=== PATIENT | female | born 1960 | race Caucasian/White ===

== ENCOUNTER → 2016-05-30 | Outpatient (CLI) | payer OTHER ==
[~2016-05-30] MED LIST: ALTOPREV40 MG PO; APAP325 M1 PO; APIDRA SOL100 UNIT/1 SUBQ; ASPIRIN EC81 M1 PO; ASPIRIN81 M1 PO; BUDEPRION XL300 MG PO; BUPROPION XL300 MG PO; CARVEDILOL12.5 MG PO; CARVEDILOL25 MG PO; CIPRO PO; CLARITIN10 M2 PO; COREG3.125 MG PO; CRESTOR10 MG PO; DESYREL50 MG PO; FISH OIL 1,0001 EAC1 PO; GABAPENTIN400 M2 PO; GLUCOPHAGE850 MG PO; GLUCOTROL PO; HUMALOG100 U/M2 SUBQ; HUMALOG100 U/ML; HUMALOG100 U/ML SUBQ; HYDROCODON-ACE1 EAC9 PO; HYDROCODONE-APA1 T55 PO; IBUPROFEN800 MG PO; IMDUR-ER60 M1 PO; INVOKANA100 MG PO; JANUVIA PO; KEFLEX PO; LANTUS SOL100 UNIT/1 SUBQ; LANTUS SOLOSTAR3 ML SUBQ; LANTUS100 U/ML SUBQ; LANTUS100 UNITS/ SUBQ; LATANOPROST2.5 ML OU; LIPITOR20 MG PO; LIPITOR40 MG PO; LISINOPRIL5 MG PO; LOPID600 MG PO; LORTAB 5-325 M1 EACH PO; LORTAB 7.5-3251 EACH PO; LOVASTATIN20 M1 PO; METFORMIN HCL850 MG PO; METFORMIN PO; MILK OF MAGNESIA PO; MOBIC PO; NEURONTIN300 MG PO; NITROGLYCERIN0.4 MG SL; NITROSTAT0.4 MG SL; NORCO 5/325 TAB1 TAB PO; PANTOPRAZOLE SO40 MG PO; PHENERGAN25 M1 DOB; PHENERGAN25 MG PO; PLAVIX PO; PROTONIX PO; ROBAXIN 750750 MG PO; TOPAMAX50 MG PO; TRAZODONE PO; ZESTORETIC 20/11 TAB PO; ZOCOR80 MG PO; ZOLOFT100 MG PO
[2016-05-30 13:24] LABS: HEMATOCRIT 43.7 % (35.0-45.0); HEMOGLOBIN 14.7 gm/dL (12.0-16.0); MEAN CELL VOLUME 87.7 FL (83-96); MEAN CORPUSCULAR HEMOGLOBIN 29.6 PG (28-34); MEAN CORPUSCULAR HGB CONC 33.7 g/dL (30-36); MEAN PLATELET VOLUME 7.5 FL (6.5-11.5); RED BLOOD COUNT 4.98 X10e (3.90-5.30); RED CELL DISTRIBUTION WIDTH 13.7 % (11.0-15.5); WHITE BLOOD COUNT 7.6 X10e3 (4.0-10.5)
[2016-05-30 14:24] LABS: BLOOD UREA NITROGEN 19 mg/dL (9-23); CALCIUM SERUM 9.5 mg/dL (8.4-10.2); CARBON DIOXIDE 30 mmol/L (22-31); CHLORIDE 100 mmol/L (100-111); CREATININE SERUM 0.5 mg/dL (0.6-1.4); GLOM FILT RATE Estimated ABOVE60 mL/min (>60); GLUCOSE FASTING 299 mg/dL (70-110); POTASSIUM 4.3 mmol/L (3.5-5.1); SODIUM 134 mmol/L (135-145)
== END | disposition home or self-care (01) ==
LOC: CAMB 11:55
PROVIDERS: Surgery
DX: Z01.812 Encounter for preprocedural laboratory examination (principal)
CPT/HCPCS: 36415; 80048; 85027

== ENCOUNTER 2016-06-08 06:48 | Inpatient (IN) | payer OTHER ==
--- NOTE | ~2016-06-08 | OR ---
Unit #: [id number] #: [id number] Patient: LILIANA KIRK [id number] [address] [place], [place] [address] [id number] I MR#: [id number] NAME: LILIANA KIRK ROOM: [facility] Date of Procedure: 06/08/2016 Admission Date: 06/08/2016 Surgeon: Igor Hernandez Jr., M.D. : 1960 Attending Physician: Igor Hernandez Jr., M.D. Primary Care Physician: Silvia Phillip M.D. OPERATIVE REPORT JOB NOTE: CC: DR. PHILLIP. INDICATION FOR PROCEDURE The patient is a 56-year-old white female, recently underwent a percutaneous needle biopsy which was suspicious for cancer. She was brought in, lumpectomy performed, and this revealed a small cancer of the breast. She has been seen in consultation by Oncology namely Dr. Chao and was felt she would best be served at her age by mastectomy with sentinel node biopsy. She is brought in this time at her request for this procedure. She understands the procedure including risks, including that of nerve injury, chronic pain, lymphocele formation, hematoma formation, and recurrence of her cancer and consents. PREOPERATIVE DIAGNOSIS Recently diagnosed adenocarcinoma of the left breast. POSTOPERATIVE DIAGNOSIS Recently diagnosed adenocarcinoma of the left breast noting the cavity from her previous biopsy against the chest wall. There was no gross recurrent disease. The sentinel lymph node was negative on frozen section. ANESTHESIA General with endotracheal intubation. TIRE GROOVER Kandice Rodas. PROCEDURE PERFORMED Left mastectomy with sentinel node biopsy. DESCRIPTION OF PROCEDURE The patient was positioned in supine position. After being anesthetized and intubated, she was prepped and draped in routine fashion for left mastectomy with sentinel node biopsy. An elliptical incision was made around the left breast with superior and inferior flaps being developed. An incision was carried around to the axilla and dissection was carried down the axilla and using the Neoprobe a single lymph node was found to represent the sentinel node. This had significant signal radiation from it. The node was removed with several vessels being clamped and divided with either hemoclips or with free-hand tie. After it was removed, it was sent to pathology. Frozen section revealed no obvious cancer. There was only a single node. At this point, the breast was taken off the chest Unit #: [id number] #: [id number] Patient: REAGAN,LILIAAN wall and completely removed and sent to pathology. Hemostasis was achieved with both Bovie cautery as well as hemoclips and were appropriate, 2-0 silk stick ties. The wound was irrigated and there was no evidence of any obvious cancer on the chest wall. The cavity from her biopsy site was removed along with the edge of the pectoralis major muscle along with the breast itself. After hemostasis was noted, two 10 mm Caleb-Martell drains were placed, one in the axillary area, the other under the flaps and sutured to the skin with 2-0 silk sutures. The wound was closed with interrupted 3-0 Vicryl sutures on the subcu and stainless steel skin clips and skin stapling device on the skin. Sterile compressive dressing was applied externally. Estimated blood loss less than 300 mL. The patient received less than 3000 mL crystalloid solution during the procedure. Sponges and instruments counts were correct x3. Two Caleb-Martell drains were used as noted above and no complications. The patient was taken to the recovery room with stable vital signs in satisfactory condition. Dictated by... Igor Hernandez Jr., M.D. JMB/albina TD: 06/09/2016 03:09 JOB #: [id number] CC: Monico Chao M.D. OPERATIVE REPORT X Igor Hernandez MD X PROCEDURE OPERATIVE NOTE
--- NOTE | ~2016-06-08 | NM79 ---
[facility] A Service of [facility] & [facility] RADIOLOGY TEXT RESULTS PATIENT: LILIANA KIRK [facility] 463-01 : [birth year] UNIT #: [id number] AGE: [address]: Igor Hernandez MD SEX: F ORDER DR: [id number] [facility] [address] [facility]. [place], [place] [address] [id number] MR#: [id number] Acc #: [id number] NAME: LILIANA KIRK : 1960 SEX: F STUDY DATE/TIME: 06/08/2016 8:00 UNIT: CS ROOM: STUDY DESCRIPTION: NM [place] Node Inj Attending Physician: Igor Hernandez Jr., M.D. Ordering Physician: Igor Hernandez Jr., M.D. Primary Care Physician: Silvia Green M.D. MEDICAL IMAGING REPORT This report is preliminary unless electronic signature is present EXAM Nuclear medicine sentinel node injection without imaging. COMPARISON Screening mammogram dated December 20, 2015 as well as left diagnostic mammogram dated January 06, 2016 and left breast ultrasound on January 06, 2016, ultrasound guided biopsy January 11, 2016 and postbiopsy left diagnostic mammogram dated January 11, 2016. Ultrasound-guided needle wire localization of left breast dated March 21, 2016 and post localization left diagnostic mammogram and surgical specimen on March 21, 2016. INDICATIONS 56-year-old female with diagnosis of left breast cancer by surgical excisional biopsy on March 21, 2016. Nuclear medicine sentinel node injection was requested prior to left mastectomy and sentinel lymph node biopsy today. FINDINGS After explaining the procedure the patient gave consent to proceed. The periareolar skin of the left breast was cleansed with alcohol pads. A time-out was performed confirming correct patient, date of and procedure and procedure site. 4 equal aliquots of technetium 99m labeled filtered sulfur colloid were injected into the periareolar dermis at the 12 o'clock, 3 o'clock, 6 o'clock and 9 o'clock positions. Total of 600 microcuries of technetium 99m labeled filtered sulfur colloid were injected. The patient tolerated procedure without complication. The injection sites were dabbed with gauze which were then given to the automation technologist for appropriate radioactive waste disposal. Patient tolerated the procedure without complication. IMPRESSION Successful nuclear medicine sentinel node injection of the left breast STS. [facility] A Service of [facility] & [facility] RADIOLOGY TEXT RESULTS PATIENT: LILIANA KIRK LOCATION: [place] [address] : [birth year] UNIT #: [id number] AGE: [address]: Igor Hernandez MD SEX: F ORDER DR: performed at approximately 08:00 a.m. on June 08, 2016. Please see separate pathology report for lymph node biopsy results. Dictated by... Axel Hewitt M.D. THIS IS AN ELECTRONICALLY VERIFIED REPORT Axel Hewitt M.D. at 06/11/2016 6:28 PM CHRISTOPH/vince TD: 06/08/2016 10:42 JOB #: [id number] MEDICAL IMAGING REPORT COPY
--- NOTE | ~2016-06-08 | DS ---
Unit #: [id number] #: [id number] Patient: LILIANA KIRK [id number] [address] [place], [place] [address] [id number] I MR#: [id number] NAME: LILIANA KIRK ROOM: 463 Age: 56 Sex: F Admission Date: 06/08/2016 : 1960 Discharge Date: 06/10/2016 Attending Physician: Igor Hernandez Jr., M.D. Primary Care Physician: Silvia Green M.D. DISCHARGE SUMMARY HISTORY AND EXAM Ms. Kirk is a 56-year-old female who was diagnosed as an outpatient with adenocarcinoma of the left breast. She was brought in the morning of surgery where Dr. Hernandez performed a left mastectomy with sentinel node biopsy. She was admitted to the hospital postoperatively and, on the first postoperative day, she had some low-grade fever and significant Caleb-Martell drainage. She was kept on observation and, by the following day, she was afebrile. Her vital signs were stable and her Caleb-Martell drainage was decreasing. On examination of her chest, her flaps were viable and there was no hematoma, seroma noted. Her pathology is still pending. She has been taught how to use her Caleb-Martell drains and a fresh dressing has been ordered. She will be discharged home in stable condition with instructions to ambulate ad mauro and undergo diet as tolerated. She is not to shower until she sees Dr. Hernandez and she is to call the office and make a followup appointment for one week. Medication reconciliation sheet was completed and a prescription for hydrocodone was left for pain control. The patient understood these instructions and will be discharged home in stable condition. Dictated by... David Friend/gerardo TD: 06/12/2016 07:11 JOB #: [id number] DISCHARGE SUMMARY X Chino Peralta MD X DISCHARGE SUMMARY
[~2016-06-08 06:48] MED LIST changes: -APAP325 M1 PO; -CARVEDILOL25 MG PO; -CRESTOR10 MG PO; -HUMALOG100 U/ML; +HUMALOG100 UNIT/2 SUBQ; -HYDROCODONE-APA1 T55 PO; -IMDUR-ER60 M1 PO; -KEFLEX PO; -LORTAB 7.5-3251 EACH PO; -MILK OF MAGNESIA PO; -NITROSTAT0.4 MG SL
[2016-06-08] MEDS ORDERED: CARVEDILOL25 MG PO (10:16)
[2016-06-08] MEDS ORDERED: CRESTOR10 MG PO (10:16)
[2016-06-08] MEDS ORDERED: LOPID600 MG PO (10:17)
[2016-06-08] MEDS ORDERED: IMDUR-ER60 M1 PO (10:17)
[2016-06-08] MEDS ORDERED: ZOLOFT100 MG PO (10:18)
[2016-06-08] MEDS ORDERED: METFORMIN PO (10:18)
[2016-06-08] MEDS ORDERED: NITROSTAT0.4 MG SL (10:18)
[2016-06-08 16:56] LABS: BASOPHIL% 0.2 % (0-2.5); EOSINOPHIL% 0.1 % (0.0-7.0); HEMATOCRIT 33.6 % (35.0-45.0); HEMOGLOBIN 11.2 gm/dL (12.0-16.0); LYMPHOCYTE# 1.1 X10e3 (1.0-3.5); MEAN CORPUSCULAR HEMOGLOBIN 29.7 PG (28-34); MEAN CORPUSCULAR HGB CONC 33.3 g/dL (30-36); MEAN PLATELET VOLUME 7.7 FL (6.5-11.5); MONOCYTE# 0.9 X10e3 (0-1.0); MONOCYTE% 5.9 % (3.0-12.0); NEUTROPHIL# 13.8 X10e3 (1.5-7.1); NEUTROPHIL% 86.8 % (40-75); PLATELET COUNT 232 X10e3 (140-420); RED BLOOD COUNT 3.77 X10e (3.90-5.30); RED CELL DISTRIBUTION WIDTH 12.9 % (11.0-15.5); WHITE BLOOD COUNT 15.8 X10e3 (4.0-10.5)
[2016-06-08 16:57] LABS: DIFF IND YES
[2016-06-08 17:20] LABS: PLATELET ESTIMATE NORMAL (NORMAL); RBC NORMAL YES
[2016-06-08] MEDS ORDERED: JANUVIA PO (18:53)
[2016-06-09 08:17] LABS: BASOPHIL# 0.1 X10e3 (0-0.3); BASOPHIL% 0.6 % (0-2.5); EOSINOPHIL# 0.2 X10e3 (0-0.7); EOSINOPHIL% 2.4 % (0.0-7.0); HEMOGLOBIN 9.9 gm/dL (12.0-16.0); LYMPHOCYTE# 2.9 X10e3 (1.0-3.5); LYMPHOCYTE% 30.2 % (17.0-45.0); MEAN CELL VOLUME 87.5 FL (83-96); MEAN CORPUSCULAR HEMOGLOBIN 29.8 PG (28-34); MEAN CORPUSCULAR HGB CONC 34.1 g/dL (30-36); MEAN PLATELET VOLUME 7.8 FL (6.5-11.5); MONOCYTE% 9.9 % (3.0-12.0); NEUTROPHIL# 5.6 X10e3 (1.5-7.1); NEUTROPHIL% 56.9 % (40-75); PLATELET COUNT 223 X10e3 (140-420); RED BLOOD COUNT 3.31 X10e (3.90-5.30); RED CELL DISTRIBUTION WIDTH 13.3 % (11.0-15.5); WHITE BLOOD COUNT 9.7 X10e3 (4.0-10.5)
[2016-06-09 08:22] LABS: DIFF IND NO
[2016-06-10] MEDS ORDERED: APAP325 M1 PO ×2 (09:04→09:06)
[2016-06-10] MEDS ORDERED: HYDROCODONE-APA1 T55 PO (09:13)
[2016-10-10] MEDS ORDERED: LORTAB 7.5-3251 EACH PO (08:22)
[2016-12-26] MEDS ORDERED: PANTOPRAZOLE SO40 MG PO (11:39)
[2016-12-26] MEDS ORDERED: LIPITOR40 MG PO (11:39)
[2016-12-26] MEDS ORDERED: INVOKANA300 MG PO (11:39)
[2016-12-26] MEDS ORDERED: TAMOXIFEN CITRA20 MG PO (11:39)
== END 2016-06-10 11:19 | disposition home or self-care (01) | DRG 581 ==
LOC: CSUR 06:48 → CPACUOF 08:50 → C4B 14:36 → C4C 06-09 17:53
PROVIDERS: Surgery
PROC: 0HTU0ZZ Resection of Left Breast, Open Approach (ICD-10-PCS; principal; 2016-06-08 11:00)
PROC: 07B60ZX Excision of Left Axillary Lymphatic, Open Approach, Diagnostic (ICD-10-PCS; 2016-06-08 11:00)
DX: C50.912 Malignant neoplasm of unspecified site of left female breast (principal); E11.9 Type 2 diabetes mellitus without complications; G89.18 Other acute postprocedural pain; K21.9 Gastro-esophageal reflux disease without esophagitis; Z79.84 Long term (current) use of oral hypoglycemic drugs; Z87.442 Personal history of urinary calculi; M19.90 Unspecified osteoarthritis, unspecified site
CPT/HCPCS: 82947; 85025; 88307; 88309; 88331; A9541; J0131; J1650; J1815; J1885; J2250; J2270; J2370; J2405; J2550; J3010

== ENCOUNTER 2016-06-20 15:40 | Inpatient (IN) | payer OTHER ==
--- NOTE | ~2016-06-20 | OR ---
Unit #: [id number] #: [id number] Patient: LILIANA KIRK [id number] [address] [place], [place] [address] [id number] I MR#: [id number] NAME: LILIANA KIRK ROOM: 461 Date of Procedure: 06/27/2016 Admission Date: 06/20/2016 Surgeon: Igor Hernandez Jr., M.D. : 1960 Attending Physician: Durga Jordan M.D. Primary Care Physician: Silvia Green M.D. OPERATIVE REPORT INDICATIONS FOR PROCEDURE The patient is a 56-year-old white female, who recently underwent mastectomy after being diagnosed with breast cancer and this was on the left. She developed a slight area of necrosis of the skin and subsequently developed a large lymphocele after drains were removed in the office. Since then, the lymphocele has become infected and she has had a drain placed by Interventional Radiology, but continues to have a large amount of fluid under the flaps with evidence of an ongoing abscess. She was brought to the operating room at this time for incision, drainage, and sharp excisional debridement using a #10 blade scalpel. She understands the procedure including the risk and consents. PREOPERATIVE DIAGNOSIS Infected wound left chest wall with abscess formation. POSTOPERATIVE DIAGNOSIS Infected wound left chest wall with abscess formation, noting minimal amount of necrosis of the edge of the skin flaps especially the lower skin flap medial. ANESTHESIA General with LMA. PROCEDURE PERFORMED Incision, drainage, and sharp excisional debridement using #10 blade scalpel of the wound in the left chest wall. DESCRIPTION OF PROCEDURE The patient was positioned in the supine position. After being anesthetized, was prepped and draped in routine fashion for incision and drainage of her fluid collection of left chest wall. Colstrip were removed from her recent surgery and sutures holding the subcutaneous tissue together were then lysed with scissors. After the wound was opened, there was a large amount of murky yellowish appearing fluid. Cultures for aerobic and anaerobic organisms were sent. The fluid was all evacuated and the wound was copiously irrigated with saline solution. There was no evidence of any significant bleeding. The small edges on the wound that were ischemic and necrotic were excised with a #10 blade scalpel. After cleaning the wound and ensuring hemostasis, the wound was packed open with saline moist dry dressings. Sterile compression dressing was applied externally. Estimated blood loss was less than 50 mL. The patient received less than 1000 mL of crystalloid solution during the procedure. Unit #: [id number] #: [id number] Patient: BURKHEAD,LILIANA Sponges and instrument counts were correct x3. No drains used. No complications. The patient was taken to the recovery room with stable vital signs in satisfactory condition. Dictated by... Igor Hernandez Jr., M.D. JMB/albina TD: 06/28/2016 05:39 JOB #: [id number] OPERATIVE REPORT Page 1 of 1 X Igor Hernandez MD X PROCEDURE OPERATIVE NOTE
--- NOTE | ~2016-06-20 | CO ---
Unit #: [id number] #: [id number] Patient: LILIANA KIRK [id number] [address] [place], [place] [address] [id number] Mirna MR#: [id number] NAME: LILIANA KIRK ROOM: 560 Age: 56 Sex: F Admission Date: 06/20/2016 : 1960 Attending Physician: Durga Jordan M.D. Primary Care Physician: Silvia Green M.D. Consultation Date: 06/22/2016 CONSULTATION REPORT REASON FOR CONSULTATION Management of diabetes mellitus. HISTORY OF PRESENT ILLNESS This is a 56-year-old female, who is known to me from my office for poorly controlled diabetes mellitus, poor compliance, who had recently diagnosed with left breast adenocarcinoma and is status post mastectomy in 05/2016. She is started not feeling well and running fever. She was seen by Dr. Pérez with a fever of 103 and she had found to have the fever, chills, and left breast infection. The patient is currently on IV antibiotics. She is having some hypoglycemia episodes and as well as high blood sugars. The patient has not been eating well. All of her insulin has been discontinued 2 days ago on 06/20/2016. I have been asked to see the patient for further management. PAST MEDICAL HISTORY Type 2 diabetes mellitus, poorly controlled; coronary artery disease; hypertension; hyperlipidemia; left breast adenocarcinoma, status post recent mastectomy, wound infection. PAST SURGICAL HISTORY Cholecystectomy, hysterectomy, left breast mastectomy, and appendectomy. ALLERGIES No known drug allergies. MEDICATIONS List is reviewed. Please see current MAR. The patient is on Levemir 55 units b.i.d., NovoLog about 15 to 20 units each meal. FAMILY HISTORY Noncontributory. SOCIAL HISTORY No tobacco use, alcohol, or any drug abuse. REVIEW OF SYSTEMS Twelve-point review of systems is completed, please see HPI. The patient has a very poor appetite and feeling weak. PHYSICAL EXAMINATION GENERAL: She is awake, alert, and oriented to time, place, and person. VITAL SIGNS: Stable. She is afebrile. Blood pressure is 113/65. HEENT: EOMI. Pupils are equal and reactive to light. Unit #: [id number] #: [id number] Patient: BURKHEAD,LILIANA NECK: Supple. CHEST: Good air entry. CVS: Regular rhythm. No murmurs. ABDOMEN: Soft, nontender, nondistended, bowel sounds positive. EXTREMITIES: No edema or ulcers are noted. DIAGNOSTIC STUDIES LABORATORY RESULTS: Reviewed. No recent A1c is available. ASSESSMENT 1. Type 2 diabetes mellitus, poorly controlled with some possible acidosis with her CO2 is 16. 2. The patient is status post left mastectomy with wound infection possible sepsis. 3. Poor compliance. 4. Insulin dependence. PLAN We will restart the patient on Levemir 25 units one dose, now followed by 15 units b.i.d. and start on NovoLog 3 units each meal plus supplemental insulin as needed. Accu-Cheks a.c. and h.s. Continue all other medicines and we will continue to follow the patient for further management. Dictated by... David Hernandez/albina TD: 06/24/2016 01:07 JOB #: [id number] CONSULTATION REPORT Page 1 of 1 X Lesley Mohamud MD X CONSULTATION REPORT
--- NOTE | ~2016-06-20 | EKG ---
PATIENT: LILIANA KIRK UNIT #: [id number] Ventricular Rate: 136 BPM Atrial Rate: 136 BPM P-R Interval: 124 ms QRS Duration: 78 ms Q-T Interval: 280 ms QTC Calculation(Bezet): 421 ms P [place]: 49 degrees Calculated R [place]: 67 degrees Calculated T [place]: 14 degrees Diagnosis Line: Sinus tachycardia Diagnosis Line: Otherwise normal ECG Diagnosis Line: When compared with ECG of 15-MAR-2016 12:43, Diagnosis Line: Vent. rate has increased BY 56 BPM Diagnosis Line: Confirmed by GRIFFIN SAUCEDO MD ([id number]) on 06/23/2016 Diagnosis Line: 7:34:41 AM INTERPRETING MD: SEHRYL PANCHAL
--- NOTE | ~2016-06-20 | DS ---
Unit #: [id number] #: [id number] Patient: LILIANA KIRK [id number] [address] [address] [id number] I MR#: [id number] NAME: LILIANA KIRK ROOM: 461 Age: 56 Sex: F Admission Date: 06/20/2016 : 1960 Discharge Date: 07/01/2016 Attending Physician: Silvia Green M.D. Primary Care Physician: Silvia Green M.D. DISCHARGE SUMMARY DISCHARGING PHYSICIAN Dr. Silvia Green. DISCHARGE DIAGNOSES 1. Infected wound, left chest wall, with abscess formation, status post mastectomy for breast cancer, status post incision and drainage and sharp excisional debridement of the wound in the left chest wall at the mastectomy site. 2. Fever, which is resolved. 3. Insulin-dependent diabetes mellitus, type 2. 4. Stable angina. 5. History of coronary artery disease, status post percutaneous coronary intervention and stent to the right coronary artery in 2013. 6. Sinus tachycardia, which is improved. 7. Hypertension, which is improved. 8. Hypoglycemia, which has improved. 9. Hyponatremia is improved. 10. Sepsis secondary to wound infection has resolved. 11. Anemia. DISCHARGE MEDICATIONS Lopid 600 mg daily; Coreg 3.125 mg p.o. b.i.d., please note, dose of Coreg has been decreased; milk of magnesia 30 mL daily; Crestor 20 mg q.h.s.; Lantus 10 units subcu b.i.d., please note, the dose of Lantus has been decreased because the patient was having hypoglycemic episodes during hospitalization; insulin lispro 5 units subcu t.i.d. (please note dose of insulin lispro is being decreased also again because of hypoglycemia); Tylenol 650 q.4 p.r.n.; Zoloft 100 mg daily; Glucophage 1000 mg b.i.d.; Januvia 100 mg daily; [place] 7.5/325 one tablet p.o. q.4 p.r.n.; isosorbide 60 mg daily; nitroglycerin p.r.n. for chest pain; Keflex 1 g q.6 for 10 days. DIAGNOSTIC STUDIES LABORATORY RESULTS: On discharge, WBC 11.7, hemoglobin 10.8, hematocrit 33.3, and platelet count of 432. Sodium 137, potassium 3.7, chloride 102, BUN 8, creatinine 0.5, calcium 8.2. Wound culture is growing MSSA. Blood cultures were negative. PROCEDURE PERFORMED During hospitalization was incision and drainage and sharp excisional debridement of the wound in the left chest wall. HOSPITAL COURSE Unit #: [id number] #: [id number] Patient: LILIANA KIRK Ms. is a 56-year-old female, who came to see Dr. Jordan on 06/20/2016, was discharged on 06/10/2016 after having left mastectomy with sentinel node biopsy. She was noted to have fever, redness, and pain and also having nausea and vomiting and looked septic. The patient was admitted to telemetry unit in the hospital. The patient was seen by Dr. Hernandez IR, intervention radiologist placed a drain, that did not help, so the patient ended up having I and D and sharp excisional debridement by LSA. The patient did develop an MSSA infection. Infectious Disease was consulted and the patient received IV antibiotics during hospitalization, which is being changed to Keflex. The patient is doing well, is being discharged to home in stable condition. PHYSICAL EXAMINATION VITAL SIGNS: On discharge, blood pressure is 138/60, respiratory rate 18, pulse is 83, temperature 98.3. CHEST: Fair air entry. CVS: Regular rhythm. BREASTS: Left breast dressing is present. EXTREMITIES: Negative edema. DISCHARGE INSTRUCTIONS 1. The patient is being discharged home in stable condition. 2. Medication as per med rec. 3. Follow up with LSA in 10 days. 4. Follow up with primary care provider in 1 week. 5. Continue wound dressing, continue dressing change as suggested by LSA. 6. Plan of care has been discussed with the patient at length. She does verbalize understanding. 7. CBC and BMP to be done in 1 week. Dictated by... Silvia Green M.D. LYDIA/albina TD: 07/02/2016 05:10 JOB #: [id number] DISCHARGE SUMMARY Page 1 of 1 X Silvia Green MD DISCHARGE SUMMARY
--- NOTE | ~2016-06-20 | CR72 ---
[facility] A Service of [facility] & [facility] RADIOLOGY TEXT RESULTS PATIENT: LILIANA KIRK LOCATION: [facility] 560-01 : [birth year] UNIT #: [id number] AGE: [address]: Durga Jordan MD SEX: F ORDER DR: [id number] [facility] [address] [facility] [place] [place], [place] [address] [id number] MR#: [id number] Acc #: [id number] NAME: LILIANA KIRK : 1960 SEX: F STUDY DATE/TIME: 06/20/2016 18:43 UNIT: [facility] ROOM: [facility] STUDY DESCRIPTION: CR Chest Single View Portable Attending Physician: Durga Jordan M.D. Ordering Physician: Durga Jordan M.D. Primary Care Physician: Silvia Green M.D. MEDICAL IMAGING REPORT This report is preliminary unless electronic signature is present EXAM Chest HISTORY Dizziness, short of air, chest pain for 3 days. Breast cancer history. Also, history of hypertension. COMMENT Single frontal portable view of the chest timed 18:43 on 06/20/2016 compared to 03/15/2016. I believe there has been recent surgery to the left breast with skin sony and axillary clips. Heart size is normal. No acute-appearing parenchymal infiltrate, acute congestive failure, pneumothorax or pleural effusion. IMPRESSION No active disease. Dictated by... Paola Gray M.D. THIS IS AN ELECTRONICALLY VERIFIED REPORT Paola Gray M.D. at 06/21/2016 12:18 PM SAC/df TD: 06/21/2016 11:43 JOB #: [id number] MEDICAL IMAGING REPORT Page 1 of 1 COPY
--- NOTE | ~2016-06-20 | HP ---
Unit #: [id number] #: [id number] Patient: LILIANA KIRK [id number] [address] [address] [id number] I MR#: [id number] NAME: LILIANA KIRK ROOM: 560 Age: 56 Sex: F Admission Date: 06/20/2016 : 1960 Attending Physician: Durga Jordan M.D. Primary Care Physician: Silvia Green M.D. HISTORY AND PHYSICAL HISTORY OF PRESENT ILLNESS This is a 56-year-old white female who was discharged from this facility on June 10, 2016, after a left mastectomy with sentinel node biopsy. The patient was diagnosed with left breast cancer and underwent mastectomy. She was doing well at home, but then she developed fever, redness, and pain in her left breast along the incision line and under the left axilla. Apparently, she had drains that were removed at some point. She came to our office for routine followup visit of coronary artery disease for which she had angioplasty and stent placement to the right coronary artery in December 2013. The remaining arteries were normal. Because she appeared septic with shivering, nausea, and vomiting, it was felt the patient should be admitted to the hospital. PAST MEDICAL HISTORY 1. A 2D echocardiogram on August 19, 2007, showed an ejection fraction of 60% with normal valves. 2. Cardiac catheterization on January 07, 2014, showed left main, circumflex, ramus intermedius, and left anterior descending arteries normal. Right coronary artery had 90% stenosis at its ostium. Ejection fraction was 50% to 60%. 3. Status post angioplasty with drug-eluting stent to the ostial right coronary artery. 4. Hypertension. 5. Hyperlipidemia. 6. Diabetes mellitus type 2. 7. History of GI bleed secondary to hemorrhoids, status post banding. 8. Recent left breast cancer, status post left mastectomy with sentinel node biopsy. 9. Nonsmoker. PAST SURGICAL HISTORY 1. Cholecystectomy. 2. Hysterectomy. 3. Right shoulder surgery. 4. Appendectomy. 5. section x2. 6. Tubal ligation. 7. Recent left mastectomy. SOCIAL HISTORY Patient is . She is a lifelong nonsmoker. No illicit drug or alcohol use. FAMILY HISTORY Unit #: [id number] #: [id number] Patient: LILIANA KIRK Mother from a stroke. ALLERGIES No known drug allergies. HOME MEDICATIONS 1. Januvia 100 mg daily. 2. Lantus 55 units subcutaneous b.i.d. 3. Carvedilol 25 mg b.i.d. 4. Crestor 20 mg at bedtime. 5. Imdur 60 mg daily. 6. Acetaminophen 325 mg q.4 hours p.r.n. 7. Hydrocodone and acetaminophen 5/325 at 1 q.6 hours p.r.n. REVIEW OF SYSTEMS A 10-point review of systems is negative except for details stated in the History of Present Illness. PHYSICAL EXAMINATION VITAL SIGNS: Blood pressure 112/46, heart rate 101, and temperature 101.3. GENERAL: This is an ill-appearing, 56-year-old white female who appears younger than her stated age. NEUROLOGICAL: She is awake, alert, and oriented. There are no focal weaknesses. NECK: Trachea is midline. No thyromegaly or lymphadenopathy. No jugular venous distention. HEART: S1 and S2 heart sounds are normal. No murmurs, rubs, or clicks. Regular rate and rhythm. LUNGS: Clear to auscultation without rales, rhonchi, or wheezing. ABDOMEN: Soft and nontender with bowel sounds present. EXTREMITIES: Without leg edema. SKIN: Pale and diaphoretic. The right breast is noted for healing (1) areas. There is an incision line with sony noted for black tissue. There is a red streaked area under the breast. On the left side at the axillary line, it is noted with inflammation. DIAGNOSTIC STUDIES LABORATORY: Sodium 125, potassium 4, BUN 14, creatinine 0.7, and glucose 527. White count 5.1, hemoglobin 10.4, hematocrit 31.8, and platelet count 424,000. IMAGING: Chest x-ray shows no active disease. CARDIOLOGY: EKG sinus tachycardia with a rate of 136 beats per minute. Questionable old inferior infarct. IMPRESSION 1. Fever, possible sepsis. 2. Status post left mastectomy. 3. Insulin-dependent diabetes mellitus type 2. 4. Stable angina. 5. Status post percutaneous coronary intervention and stent to the right coronary artery in 2013. 6. Sinus tachycardia. 7. Hyperglycemia. PLAN 1. Will ask [facility] to see the patient for wound Unit #: [id number] #: [id number] Patient: LILIANA KIRK infection. 2. Stat blood cultures will be obtained. 3. Start on antibiotics. 4. Lactic acid will be obtained. 5. Chest x-ray shows no source of infection with no infiltrates. 6. Start on IV fluids. 7. Will ask Dr. Green to see the patient for medical management. 1. Dictated by Rebecca GoldsteinPElijahRElijahNElijah for David Paris TD: 06/21/2016 22:00 JOB #: [id number] HISTORY AND PHYSICAL Page 1 of 1 X Saul Gilliam APRN X HISTORY AND PHYSICAL
--- NOTE | ~2016-06-20 | CO ---
Unit #: [id number] #: [id number] Patient: LILIANA KIRK [id number] [address] [address] [id number] I MR#: [id number] NAME: LILIANA KIRK ROOM: 560 Age: 56 Sex: F Admission Date: 06/20/2016 : 1960 Attending Physician: Durga Jordan M.D. Primary Care Physician: Silvia Geren M.D. Consultation Date: 06/22/2016 CONSULTATION REPORT The patient was admitted to Dr. Jordan. REASON FOR CONSULTATION Infected breast abscess. HISTORY OF PRESENT ILLNESS This is a 56-year-old female recently diagnosed with left breast adenocarcinoma, status post mastectomy in May 2016. The patient was sent home but she came back for low-grade fever, seeing the surgeon, and was placed in observation therapy after a drain was placed. The patient was discharged home but she continued to have some running of fever. When she followed up at her cleat layer's office, she was found to have a fever of 103.9. The patient was admitted to the hospital for associated fever, chills, and left breast infection. The patient is now admitted and she is status post new drain placement with purulent material noted and IV antibiotics have been started and ID was asked to evaluate. In discussion with patient, she reports that her fever has improved since the drain has been placed. She continues to have significant pain but overall is feeling better. She denies any headache, chest pain, nausea, vomiting, diarrhea, or UTI signs or symptoms. PAST MEDICAL HISTORY 1. Left breast adenocarcinoma, status post recent mastectomy. 2. Diabetes mellitus type 2. 3. Coronary artery disease. 4. Hypertension. 5. Hyperlipidemia. 6. History of GI bleed in the past. PAST SURGICAL HISTORY 1. Cholecystectomy. 2. Hysterectomy. 3. Right shoulder surgery. 4. Appendectomy. 5. Tubal ligation. 6. Intraabdominal adhesion removal. ALLERGIES No known allergies. MEDICATIONS The patient is currently on vancomycin. For other medications, please refer to patient's MAR. Unit #: [id number] #: [id number] Patient: LILIANA KIRK SOCIAL HISTORY The patient lives with her family. She has no alcohol, tobacco abuse, or drug use. REVIEW OF SYSTEMS Negative except for as previously mentioned above. PHYSICAL EXAMINATION VITAL SIGNS: Temperature is 97.5 with a T-max of 101.3, pulse is 81, blood pressure 106/62, respiratory rate 18. GENERAL: This is a no apparent distress female who is currently laying in the bed comfortably. Her pupils are equal. NECK: Her neck is supple. CARDIOVASCULAR: S1, S2. Regular rate and rhythm. PULMONARY: Clear to auscultation. Diminished in the bases. Left chest shows sony with some scabbed incision site with some minimal erythema. There is a DENNIS drain in place but it does show some purulent material. ABDOMEN: Positive bowel sounds. Soft and nontender. EXTREMITIES: No clubbing, cyanosis, or edema. DIAGNOSTIC STUDIES LABORATORY: BUN 22, creatinine 0.7, sodium 130, potassium 3.1, chloride 103, CO2 of 17. Bilirubin 1.3, AST 15, ALT 13. Lactic acid on admission was 5 and it has improved to 2. WBC 9.1, hemoglobin 7.1, hematocrit 21.4, platelets 294,000. Urinalysis not done. June 20 blood cultures are currently negative to date. June 21 aspiration fluid is currently pending. IMAGING: Chest x-ray shows no active disease. Radiology report says 300 mL of fluid aspirated with bloody purulent material noted and drain placed. IMPRESSION This is a 56-year-old female with left breast adenocarcinoma, status post mastectomy in May 2016 with postoperative site infection with 300 mL of purulent bloody material drained. At this time, will treat as infected abscess/infected seroma as patient was noted to also have fever and chills. At this time, will followup blood culture results to make sure that this infection is limited to the breast. Will continue vancomycin but would recommend to add Zosyn at this time pending further culture results. The patient may require discontinuing of sony as there is some necrotic incision space but will defer this to the surgery team. The patient's fever has overall improved since drain has been placed and blood pressure is stable. Will continue to follow along with the patient and will have the nursing staff call with any positive blood cultures. This case will be discussed with Dr. Russ Abreu who will evaluate this patient today. Thank you for allowing us to participate in the care of this patient. Further recommendations to follow pending patient's clinical course. Dictated by... Janny Posadas A.P.R.N. for David David Unit #: [id number] #: [id number] Patient: LILIANA KIRK TD: 06/22/2016 11:05 JOB #: [id number] CONSULTATION REPORT Page 1 of 1 X X CONSULTATION REPORT
--- NOTE | ~2016-06-20 | XA259 ---
[facility] A Service of [facility] & [facility] RADIOLOGY TEXT RESULTS PATIENT: LILIANA KIRK LOCATION: C5B 560-01 : [birth year] UNIT #: [id number] AGE: [address]: Durga Jordan MD SEX: F ORDER DR: [id number] [facility] [address] [place], [place] [address] [id number] I MR#: [id number] Acc #: [id number] NAME: LILIANA KIRK : 1960 SEX: F STUDY DATE/TIME: 06/21/2016 14:51 UNIT: C5B ROOM: [facility] STUDY DESCRIPTION: CALVIN Bahena Cath Lynn/Retro w/im Attending Physician: Durga Jordan M.D. Ordering Physician: Gibson Oliveira M.D. Primary Care Physician: Silvia Green M.D. MEDICAL IMAGING REPORT This report is preliminary unless electronic signature is present EXAM Drain placement INDICATION Ms. Kirk is a 56-year-old lady with a history of breast cancer. She underwent left mastectomy June 08, 2016 and she subsequently developed sepsis and was noted to have erythema, and swelling overlying the left mastectomy site. She was referred for drain placement. PROCEDURE There risks, benefits, and alternatives to the procedure were explained to the patient and signed, informed consent was obtained. She was placed supine on the stretcher. Preliminary ultrasound of the left mastectomy site showed a large complex collection. This image was permanent saved. Overlying skin was marked. Patient was prepped and draped in the usual sterile fashion. Time-out was performed as per protocol. Skin and subcutaneous tissues were anesthetized with buffered lidocaine and a [employer] catheter was advanced into the fluid with aspiration of purulent appearing bloody material. A wire was advanced through the catheter and a 6-Monegasque pigtail drainage catheter was placed. Manual aspiration of 300 mL of bloody purulent material was performed. A sample of this will be sent to the lab for Gram stain culture and sensitivity. The catheter was secured using two 2-0 silk sutures and placed to suction drainage. Patient tolerated the procedure well. She did receive conscious sedation consisting of half milligram Versed and 25 mcg of Fentanyl and 20 minutes of continuous monitoring was provided by the IVR nurse. IMPRESSION Successful placement of a 6-Monegasque drain within this patient's left mastectomy site abscess. Ultrasound was used during the procedure and permanent images were saved. Dictated by... [facility] A Service of [facility] RADIOLOGY TEXT RESULTS PATIENT: LILIANA KIRK LOCATION: [facility] 560-01 : [birth year] UNIT #: [id number] AGE: [address]: Durga Jordan MD SEX: F ORDER DR: Haley Mo M.D. THIS IS AN ELECTRONICALLY VERIFIED REPORT Haley Mo M.D. at 06/22/2016 4:38 PM LETICIA/maximus TD: 06/22/2016 09:38 JOB #: [id number] MEDICAL IMAGING REPORT Page 1 of 1 COPY
--- NOTE | ~2016-06-20 | US140 ---
[facility] A Service of [facility] & [facility] RADIOLOGY TEXT RESULTS PATIENT: LILIANA KIRK LOCATION: C5B 560-01 : [birth year] UNIT #: [id number] AGE: [address]: Durga Jordan MD SEX: F ORDER DR: [id number] [facility] [address] [place], [place] [address] [id number] I MR#: [id number] Acc #: [id number] NAME: LILIANA KIRK : 1960 SEX: F STUDY DATE/TIME: 06/23/2016 8:41 UNIT: C5B ROOM: [facility] STUDY DESCRIPTION: US UE Veins Unilat or Ltd Stdy Attending Physician: Durga Jordan M.D. Ordering Physician: Gail Domínguez M.D. Primary Care Physician: Silvia Green M.D. MEDICAL IMAGING REPORT This report is preliminary unless electronic signature is present EXAM Right upper extremity venous ultrasound, 06/23/2016. HISTORY Right arm swelling and pain. Evaluate for DVT. Edema times 2 days. IV placed 3 days ago. Diabetic, hypertension, hyperlipidemia. No history of clots. TECHNIQUE Real-time ultrasonography of the right extremity venous structures was performed. Melara-scale, color Doppler, Doppler pulse-wave interrogation utilized. FINDINGS The right internal jugular, subclavian, axillary, and brachial veins are patent with normal compressibility where anatomically possible. Normal color Doppler interrogation demonstrating ppfp-cu-cord flow. The right basilic vein is patent. The right cephalic vein is patent but in the proximal cephalic vein in the upper arm, the patient has intravenous access and there is diminished compressibility of the veins adjacent to the intravenous catheter. This is consistent with nonocclusive pericatheter superficial venous thrombosis. Proximal and distal to the level of the intravenous catheter, the cephalic vein is patent. IMPRESSION 1. Right upper extremity venous ultrasound shows no evidence of right upper extremity deep venous thrombosis. 2. Segmental right superficial venous thrombosis in the proximal to mid right cephalic vein in the upper arm at the level of intravenous catheter. This appears to be pericatheter thrombus. Residual flow in this segment is visualized. Proximal and distal to this level, the cephalic vein remains fully patent. Basilic vein patent. [facility] A Service of [facility] RADIOLOGY TEXT RESULTS PATIENT: LILIANA KIRK LOCATION: C5B 560-01 : [birth year] UNIT #: [id number] AGE: [address]: Durga Jordan MD SEX: F ORDER DR: Dictated by... Ras Ravi M.D. THIS IS AN ELECTRONICALLY VERIFIED REPORT Ras Ravi M.D. at 06/23/2016 7:54 PM RAFY/shelia TD: 06/23/2016 11:47 JOB #: [id number] MEDICAL IMAGING REPORT Page 1 of 1 COPY
--- NOTE | ~2016-06-20 | CR6 ---
[facility] A Service of [facility] RADIOLOGY TEXT RESULTS PATIENT: LILIANA KIRK LOCATION: [facility] 461-01 : [birth year] UNIT #: [id number] AGE: [address]: Silvia Green MD SEX: F ORDER DR: [id number] [facility] [address] [place], [place] [address] [id number] I MR#: [id number] Acc #: [id number] NAME: LILIANA KIRK : 1960 SEX: F STUDY DATE/TIME: 06/30/2016 17:23 UNIT: [facility] ROOM: [facility] STUDY DESCRIPTION: CR Abdomen Portable Sng View Attending Physician: Silvia Green M.D. Ordering Physician: Duncan Elmore M.D. Primary Care Physician: Silvia Green M.D. MEDICAL IMAGING REPORT This report is preliminary unless electronic signature is present EXAM Portable abdomen HISTORY Abdomen pain and constipation for 2 days. FINDINGS Moderate amount of stool in nondistended colon and rectum. No bowel dilatation or displacement. Surgical clips in the right upper quadrant and right lower quadrant. The visualized skeletal structures are unremarkable. IMPRESSION 1. Moderate amount of stool in nondistended colon. 2. No acute findings. No bowel displacement or dilatation. Dictated by... Jensen Barragan M.D. THIS IS AN ELECTRONICALLY VERIFIED REPORT Jensen Barragan M.D. at 07/01/2016 1:25 PM DFL/rnr TD: 07/01/2016 02:39 JOB #: [id number] MEDICAL IMAGING REPORT Page 1 of 1 COPY
--- NOTE | ~2016-06-20 | CO ---
Unit #: [id number] #: [id number] Patient: LILIANA KIRK [id number] [address] [address] [id number] I MR#: [id number] NAME: LILIANA KIRK ROOM: 560 Age: 56 Sex: F Admission Date: 06/20/2016 : 1960 Attending Physician: Durga Jordan M.D. Primary Care Physician: Silvia Green M.D. CONSULTATION REPORT REFERRING PHYSICIAN Dr. Durga Jordan. CONSULTING PHYSICIAN Dr. Silvia Green. REASON FOR CONSULT Medical management, diabetic management, and left breast infection. HISTORY OF PRESENT ILLNESS A 56-year-old female who was diagnosed with adenocarcinoma of the left breast had surgical procedure done on April 20 for biopsy and later on mastectomy done in beginning of May of the left breast. The patient was discharged home. She was readmitted on June 10 for low-grade fever and significant drainage. Interventional radiology at that time was consulted and patient had a drain. She was discharged home. According to patient, she went home. Has been running fever at home and has been feeling pretty sick. She went to Dr. Jordan's office for routine cardiac followup, was found to be shivering, high temperature, and left breast infection. The patient was directly admitted to telemetry unit. The patient is complaining of a lot of pain in the left breast area and she seems to be somewhat lethargic. PAST MEDICAL HISTORY 1. Left breast adenocarcinoma, recently status post mastectomy. 2. History of diabetes mellitus type 2, uncontrolled. 3. Coronary artery disease. 4. Hypertension. 5. Hyperlipidemia. 6. History of GI bleed in the past from hemorrhoid. PAST SURGICAL HISTORY The patient has had multiple surgeries. 1. Cholecystectomy. 2. Hysterectomy. 3. Right shoulder surgery. 4. Appendectomy. 5. Tubal ligation. 6. History of intraabdominal adhesion removal. ALLERGIES No known drug allergies. SOCIAL HISTORY Unit #: [id number] #: [id number] Patient: LILIANA KIRK The patient lives at home with her daughter and grandson. No history of alcohol abuse or drug abuse. FAMILY HISTORY Negative for coronary artery disease. REVIEW OF SYSTEMS As per history of presenting illness. The patient has not had any nausea, vomiting, constipation, diarrhea, or abdominal pain. PHYSICAL EXAMINATION VITAL SIGNS: The patient is seen in room 560. Blood pressure is 98/57, respiratory rate 20, pulse 96, temperature 97.9, T-max 101.3. HEENT: Head is normocephalic. Eye movements are normal. NECK: Supple. CHEST: Fair air entry. No additional sounds. CARDIOVASCULAR: S1, S2 positive. Regular rhythm. ABDOMEN: Obese, soft. BREAST: Left breast: There is a black eschar, redness at the incision site. There is a large seroma. EXTREMITIES: Bilateral extremities: Negative edema. Pulses are palpable. CENTRAL NERVOUS SYSTEM: The patient is awake and alert, seems to be lethargic but no neuro deficits. DIAGNOSTIC STUDIES LABORATORY: Lab workup so far shows WBC 5.1, hemoglobin 10.4, hematocrit 31.8, platelet count 424,000. PT/INR is 11.1 and 1.1. Urinalysis shows more than 1000 glucose. Sodium 125, potassium 4, chloride 94, glucose 527, BUN 14, creatinine 0.7. Liver enzymes are stable. Lactic acid 5, this morning 2. This morning, sodium is 131. ASSESSMENT AND PLAN The patient is being admitted to telemetry unit with: 1. Left breast infected wound, status post left mastectomy for adenocarcinoma of the breast. [facility] has been consulted. Patient may need debridement of the wound. IV vancomycin is being started. Blood cultures have been done. 2. Hypotension: Home medications are being reviewed. IV fluids are being started. Hypertensive medications are being discontinued at this time. Will continue to observe closely. 3. Hypoglycemia: The patient is NPO. Most likely that is the reason she is hypoglycemic at this time. The patient has a history of diabetes mellitus uncontrolled. 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 Poe. At this time, the patient will be started on IV fluids D5 normal saline at 50 mL an hour until NPO and after that will change it to normal saline. 4. Hyponatremia: Most likely pseudo hyponatremia secondary to uncontrolled hyperglycemia which has already improved. We will continue to replace fluids. 5. Sepsis secondary to wound infection: Infectious disease will be consulted. Continue antibiotics. Culture is being done. 6. Anemia: Will continue to observe closely. The patient has had hemorrhoidal bleeding in the past. She follows up with Dr. Parada as outpatient. Plan of care has been discussed with patient. Unit #: [id number] #: [id number] Patient: LILIANA KIRK Thank you, Dr. Jordan, for involving us in patient's care. Will continue to follow along with you while admitted. Dictated by... David Beatty TD: 06/21/2016 11:58 JOB #: [id number] CONSULTATION REPORT Page 1 of 1 X Silvia Green MD X CONSULTATION REPORT
[~2016-06-20 15:40] MED LIST changes: +APAP325 M1 PO; +CARVEDILOL25 MG PO; +CRESTOR10 MG PO; +HYDROCODONE-APA1 T55 PO; +IMDUR-ER60 M1 PO; +NITROSTAT0.4 MG SL
[2016-06-20 17:41] LABS: BASOPHIL% 0.3 % (0-2.5); EOSINOPHIL% 0.3 % (0.0-7.0); HEMATOCRIT 31.8 % (35.0-45.0); HEMOGLOBIN 10.4 gm/dL (12.0-16.0); LYMPHOCYTE# 0.4 X10e3 (1.0-3.5); LYMPHOCYTE% 6.9 % (17.0-45.0); MEAN CELL VOLUME 87.6 FL (83-96); MEAN CORPUSCULAR HEMOGLOBIN 28.8 PG (28-34); MEAN CORPUSCULAR HGB CONC 32.9 g/dL (30-36); MEAN PLATELET VOLUME 6.9 FL (6.5-11.5); MONOCYTE# 0.5 X10e3 (0-1.0); MONOCYTE% 10.7 % (3.0-12.0); NEUTROPHIL# 4.2 X10e3 (1.5-7.1); NEUTROPHIL% 81.8 % (40-75); PLATELET COUNT 424 X10e3 (140-420); RED BLOOD COUNT 3.63 X10e (3.90-5.30); RED CELL DISTRIBUTION WIDTH 13.5 % (11.0-15.5); WHITE BLOOD COUNT 5.1 X10e3 (4.0-10.5)
[2016-06-20 17:54] LABS: DIFF IND NO
[2016-06-20 18:03] LABS: URINE APPEARANCE CLEAR; URINE BILIRUBIN NEG (NEG); URINE BLOOD NEG (NEG); URINE COLOR YELLOW; URINE GLUCOSE >1000 MG/DL (NEG); URINE KETONE 2+ (NEG); URINE LEUKOCYTE ESTERASE NEG (NEG); URINE NITRATE NEG (NEG); URINE PROTEIN NEG (NEG); URINE SPECIFIC GRAVITY 1.034 (1.003-1.035)
[2016-06-20 18:04] LABS: ALBUMIN SERUM 3.6 g/dL (3.5-5.0); ALKALINE PHOSPHATASE 83 U/L (32-92); ALT (SGPT) 13 U/L (10-40); AST (SGOT) 15 U/L (10-42); BILIRUBIN,TOTAL 1.3 mg/dL (0.2-2.0); BLOOD UREA NITROGEN 14 mg/dL (9-23); CALCIUM SERUM 8.3 mg/dL (8.4-10.2); CARBON DIOXIDE 20 mmol/L (22-31); CHLORIDE 94 mmol/L (100-111); CREATININE SERUM 0.7 mg/dL (0.6-1.4); GLOM FILT RATE Estimated ABOVE60 mL/min (>60); INR 1.1; PROTEIN TOTAL SERUM 8.2 g/dL (6.0-8.3); PROTHROMBIN TIME (PATIENT) 11.1 SECONDS (9.6-11.5)
[2016-06-20 18:12] LABS: GLUCOSE FASTING 527 mg/dL (70-110)
[2016-06-20 18:14] LABS: SODIUM 125 mmol/L (135-145)
[2016-06-21 06:42] LABS: HEMATOCRIT 24.1 % (35.0-45.0); MEAN CORPUSCULAR HEMOGLOBIN 28.6 PG (28-34); MEAN CORPUSCULAR HGB CONC 33.2 g/dL (30-36); RED BLOOD COUNT 2.8 X10e (3.90-5.30); RED CELL DISTRIBUTION WIDTH 13.3 % (11.0-15.5)
[2016-06-21 06:45] LABS: WHITE BLOOD COUNT 8.2 X10e3 (4.0-10.5)
[2016-06-21 07:52] LABS: BLOOD UREA NITROGEN 16 mg/dL (9-23); BUN/CREATININE RATIO 22.85; CALCIUM SERUM 7.8 mg/dL (8.4-10.2); CARBON DIOXIDE 23 mmol/L (22-31); CHLORIDE 101 mmol/L (100-111); CREATININE SERUM 0.7 mg/dL (0.6-1.4); GLOM FILT RATE Estimated ABOVE60 mL/min (>60); GLUCOSE FASTING 63 mg/dL (70-110); POTASSIUM 3.6 mmol/L (3.5-5.1); SODIUM 131 mmol/L (135-145)
[2016-06-22 06:59] LABS: HEMATOCRIT 21.4 % (35.0-45.0); HEMOGLOBIN 7.1 gm/dL (12.0-16.0); MEAN CELL VOLUME 86.2 FL (83-96); MEAN CORPUSCULAR HEMOGLOBIN 28.8 PG (28-34); MEAN CORPUSCULAR HGB CONC 33.4 g/dL (30-36); MEAN PLATELET VOLUME 6.9 FL (6.5-11.5); RED BLOOD COUNT 2.48 X10e (3.90-5.30); RED CELL DISTRIBUTION WIDTH 13.7 % (11.0-15.5); WHITE BLOOD COUNT 9.1 X10e3 (4.0-10.5)
[2016-06-22 07:29] LABS: BLOOD UREA NITROGEN 22 mg/dL (9-23); BUN/CREATININE RATIO 31.42; CALCIUM SERUM 6.9 mg/dL (8.4-10.2); CARBON DIOXIDE 17 mmol/L (22-31); CHLORIDE 103 mmol/L (100-111); CREATININE SERUM 0.7 mg/dL (0.6-1.4); GLOM FILT RATE Estimated ABOVE60 mL/min (>60); GLUCOSE FASTING 144 mg/dL (70-110); POTASSIUM 3.1 mmol/L (3.5-5.1); SODIUM 130 mmol/L (135-145)
[2016-06-22 13:53] LABS: URINE APPEARANCE TURBID; URINE BILIRUBIN NEG (NEG); URINE BLOOD NEG (NEG); URINE COLOR DK YELLOW; URINE GLUCOSE >1000 MG/DL (NEG); URINE KETONE 1+ (NEG); URINE LEUKOCYTE ESTERASE TRACE (NEG); URINE NITRATE NEG (NEG); URINE PROTEIN TRACE (NEG); URINE SPECIFIC GRAVITY 1.022 (1.003-1.035)
[2016-06-22 13:56] LABS: URINE BACTERIA AUWI NEG (NEGATIVE); URINE SQUAMOUS EPITHELIAL CELL FEW /[HPF]
[2016-06-22 14:06] LABS: HEMATOCRIT 22.9 % (35.0-45.0); HEMOGLOBIN 7.6 gm/dL (12.0-16.0)
[2016-06-22 14:10] LABS: U HYALINE CASTS AUWI 0-2 /[LPF]; URINE GRANULAR CAST 0-2 /[HPF]
[2016-06-23 08:07] LABS: ARTERIAL BLD GAS O2 SATURATION 96.1 % (90.0-100.0); ARTERIAL BLOOD GAS ALLEN TEST NORMAL; ARTERIAL BLOOD GAS ART SITE RIGHT RADIAL; ARTERIAL BLOOD GAS CARBOXY HB 0.5 %sat (0.0-9.0); ARTERIAL BLOOD GAS HCO3 16.5 mmol/L; ARTERIAL BLOOD GAS MET HB 0.4 %sat (0.0-2.0); ARTERIAL BLOOD GAS PCO2 26.1 mmHg (35.0-45.0); ARTERIAL BLOOD GAS PO2 84.8 mmHg (80.0-100); ARTERIAL BLOOD GAS pH 7.409 (7.350-7.450); ARTERIAL DRAW? YES
[2016-06-23 10:14] LABS: HEMATOCRIT 20.9 % (35.0-45.0); MEAN CELL VOLUME 87.7 FL (83-96); MEAN CORPUSCULAR HEMOGLOBIN 28.6 PG (28-34); MEAN CORPUSCULAR HGB CONC 32.6 g/dL (30-36); MEAN PLATELET VOLUME 7.4 FL (6.5-11.5); RED BLOOD COUNT 2.38 X10e (3.90-5.30); RED CELL DISTRIBUTION WIDTH 14.3 % (11.0-15.5); WHITE BLOOD COUNT 7.2 X10e3 (4.0-10.5)
[2016-06-23 10:17] LABS: HEMOGLOBIN 6.8 gm/dL (12.0-16.0)
[2016-06-23 11:24] LABS: BUN/CREATININE RATIO 26.66; CALCIUM SERUM 7.6 mg/dL (8.4-10.2); CREATININE SERUM 0.6 mg/dL (0.6-1.4); GLOM FILT RATE Estimated 103.3 mL/min (>60); POTASSIUM 3.3 mmol/L (3.5-5.1)
[2016-06-24 01:01] LABS: HEMATOCRIT 31.7 % (35.0-45.0)
[2016-06-24 01:06] LABS: HEMOGLOBIN 10.8 gm/dL (12.0-16.0)
[2016-06-24 06:25] LABS: POTASSIUM,URINE RANDOM 38 mmol/L; SODIUM URINE RANDOM 60 mmol/L
[2016-06-24 08:52] LABS: OSMOLALITY,URINE 705 mOsmo/kg (250-900)
[2016-06-24 10:34] LABS: HEMATOCRIT 33.2 % (35.0-45.0); MEAN CELL VOLUME 86.9 FL (83-96); MEAN CORPUSCULAR HEMOGLOBIN 28.9 PG (28-34); MEAN CORPUSCULAR HGB CONC 33.2 g/dL (30-36); MEAN PLATELET VOLUME 7.3 FL (6.5-11.5); RED BLOOD COUNT 3.82 X10e (3.90-5.30); RED CELL DISTRIBUTION WIDTH 14.3 % (11.0-15.5)
[2016-06-24 11:03] LABS: ALBUMIN SERUM 2.3 g/dL (3.5-5.0); BILIRUBIN,TOTAL 0.9 mg/dL (0.2-2.0); CALCIUM SERUM 7.8 mg/dL (8.4-10.2); CREATININE SERUM 0.5 mg/dL (0.6-1.4); GLOM FILT RATE Estimated 109.7 mL/min (>60); MAGNESIUM 1.9 mg/dL (1.6-3.0); PHOSPHOROUS 1.8 mg/dL (2.5-4.6); POTASSIUM 3.4 mmol/L (3.5-5.1); PROTEIN TOTAL SERUM 6.2 g/dL (6.0-8.3)
[2016-06-25 05:55] LABS: ALBUMIN SERUM 2.2 g/dL (3.5-5.0); BILIRUBIN,TOTAL 0.4 mg/dL (0.2-2.0); CALCIUM SERUM 7.9 mg/dL (8.4-10.2); CREATININE SERUM 0.6 mg/dL (0.6-1.4); GLOM FILT RATE Estimated 103.3 mL/min (>60); MAGNESIUM 1.9 mg/dL (1.6-3.0); PHOSPHOROUS 3.4 mg/dL (2.5-4.6); POTASSIUM 3.9 mmol/L (3.5-5.1); PROTEIN TOTAL SERUM 5.4 g/dL (6.0-8.3)
[2016-06-26 06:20] LABS: HEMATOCRIT 32.8 % (35.0-45.0); HEMOGLOBIN 10.9 gm/dL (12.0-16.0); MEAN CELL VOLUME 88.2 FL (83-96); MEAN CORPUSCULAR HEMOGLOBIN 29.3 PG (28-34); MEAN CORPUSCULAR HGB CONC 33.3 g/dL (30-36); MEAN PLATELET VOLUME 7.1 FL (6.5-11.5); RED BLOOD COUNT 3.72 X10e (3.90-5.30); WHITE BLOOD COUNT 7.3 X10e3 (4.0-10.5)
[2016-06-26 07:06] LABS: BUN/CREATININE RATIO 18.33; CALCIUM SERUM 8.2 mg/dL (8.4-10.2); CREATININE SERUM 0.6 mg/dL (0.6-1.4); GLOM FILT RATE Estimated 103.3 mL/min (>60); PHOSPHOROUS 3.4 mg/dL (2.5-4.6); POTASSIUM 3.4 mmol/L (3.5-5.1)
[2016-06-27 05:20] LABS: HEMATOCRIT 30.9 % (35.0-45.0); HEMOGLOBIN 10.3 gm/dL (12.0-16.0); MEAN CELL VOLUME 87.7 FL (83-96); MEAN CORPUSCULAR HEMOGLOBIN 29.1 PG (28-34); MEAN CORPUSCULAR HGB CONC 33.2 g/dL (30-36); MEAN PLATELET VOLUME 6.7 FL (6.5-11.5); RED BLOOD COUNT 3.52 X10e (3.90-5.30); RED CELL DISTRIBUTION WIDTH 14.8 % (11.0-15.5); WHITE BLOOD COUNT 5.2 X10e3 (4.0-10.5)
[2016-06-27 06:48] LABS: CALCIUM SERUM 8.2 mg/dL (8.4-10.2); CREATININE SERUM 0.5 mg/dL (0.6-1.4); GLOM FILT RATE Estimated 109.7 mL/min (>60); MAGNESIUM 1.7 mg/dL (1.6-3.0); POTASSIUM 4.1 mmol/L (3.5-5.1)
[2016-06-28 04:03] LABS: BASOPHIL% 0.6 % (0-2.5); EOSINOPHIL# 0.3 X10e3 (0-0.7); EOSINOPHIL% 4.4 % (0.0-7.0); HEMATOCRIT 29.8 % (35.0-45.0); HEMOGLOBIN 9.6 gm/dL (12.0-16.0); LYMPHOCYTE# 1.7 X10e3 (1.0-3.5); MEAN CORPUSCULAR HEMOGLOBIN 28.8 PG (28-34); MEAN CORPUSCULAR HGB CONC 32.4 g/dL (30-36); MEAN PLATELET VOLUME 6.7 FL (6.5-11.5); MONOCYTE# 0.6 X10e3 (0-1.0); NEUTROPHIL# 3.1 X10e3 (1.5-7.1); PLATELET COUNT 377 X10e3 (140-420); RED BLOOD COUNT 3.35 X10e (3.90-5.30); RED CELL DISTRIBUTION WIDTH 14.9 % (11.0-15.5); WHITE BLOOD COUNT 5.7 X10e3 (4.0-10.5)
[2016-06-28 04:07] LABS: DIFF IND NO
[2016-06-28 04:33] LABS: CALCIUM SERUM 7.9 mg/dL (8.4-10.2); CREATININE SERUM 0.6 mg/dL (0.6-1.4); GLOM FILT RATE Estimated 103.3 mL/min (>60); POTASSIUM 4.3 mmol/L (3.5-5.1)
[2016-06-29 04:18] LABS: HEMATOCRIT 28.1 % (35.0-45.0); HEMOGLOBIN 9.2 gm/dL (12.0-16.0); MEAN CORPUSCULAR HEMOGLOBIN 28.9 PG (28-34); MEAN CORPUSCULAR HGB CONC 32.9 g/dL (30-36); MEAN PLATELET VOLUME 6.2 FL (6.5-11.5); RED BLOOD COUNT 3.2 X10e (3.90-5.30); RED CELL DISTRIBUTION WIDTH 14.6 % (11.0-15.5); WHITE BLOOD COUNT 6.2 X10e3 (4.0-10.5)
[2016-06-30 04:01] LABS: BASOPHIL% 0.4 % (0-2.5); EOSINOPHIL# 0.3 X10e3 (0-0.7); EOSINOPHIL% 4.4 % (0.0-7.0); HEMATOCRIT 29.1 % (35.0-45.0); HEMOGLOBIN 9.5 gm/dL (12.0-16.0); LYMPHOCYTE# 2.4 X10e3 (1.0-3.5); LYMPHOCYTE% 34.3 % (17.0-45.0); MEAN CELL VOLUME 88.2 FL (83-96); MEAN CORPUSCULAR HEMOGLOBIN 28.9 PG (28-34); MEAN CORPUSCULAR HGB CONC 32.7 g/dL (30-36); MEAN PLATELET VOLUME 6.3 FL (6.5-11.5); MONOCYTE# 0.5 X10e3 (0-1.0); MONOCYTE% 7.1 % (3.0-12.0); NEUTROPHIL# 3.8 X10e3 (1.5-7.1); NEUTROPHIL% 53.8 % (40-75); PLATELET COUNT 350 X10e3 (140-420); RED CELL DISTRIBUTION WIDTH 14.4 % (11.0-15.5); WHITE BLOOD COUNT 7.1 X10e3 (4.0-10.5)
[2016-06-30 04:03] LABS: DIFF IND NO
[2016-06-30 04:22] LABS: CALCIUM SERUM 8.2 mg/dL (8.4-10.2); CREATININE SERUM 0.5 mg/dL (0.6-1.4); GLOM FILT RATE Estimated 109.7 mL/min (>60); POTASSIUM 3.7 mmol/L (3.5-5.1)
[2016-07-01 04:24] LABS: HEMATOCRIT 33.3 % (35.0-45.0); HEMOGLOBIN 10.8 gm/dL (12.0-16.0); MEAN CORPUSCULAR HEMOGLOBIN 28.8 PG (28-34); MEAN CORPUSCULAR HGB CONC 32.3 g/dL (30-36); MEAN PLATELET VOLUME 6.5 FL (6.5-11.5); RED BLOOD COUNT 3.74 X10e (3.90-5.30); RED CELL DISTRIBUTION WIDTH 14.8 % (11.0-15.5)
[2016-07-01 04:25] LABS: WHITE BLOOD COUNT 11.7 X10e3 (4.0-10.5)
[2016-07-01] MEDS ORDERED: HYDROCODON-ACE1 EAC9 PO (17:51)
[2016-07-01] MEDS ORDERED: COREG3.125 MG PO (17:59)
[2016-07-01] MEDS ORDERED: KEFLEX PO (18:00)
[2016-07-01] MEDS ORDERED: MILK OF MAGNESIA PO (18:02)
[2016-10-10] MEDS ORDERED: LORTAB 7.5-3251 EACH PO (08:22)
[2016-12-26] MEDS ORDERED: LIPITOR40 MG PO (11:39)
[2016-12-26] MEDS ORDERED: PANTOPRAZOLE SO40 MG PO (11:39)
[2016-12-26] MEDS ORDERED: INVOKANA300 MG PO (11:39)
[2016-12-26] MEDS ORDERED: TAMOXIFEN CITRA20 MG PO (11:39)
== END 2016-07-01 19:15 | disposition home or self-care (01) | DRG 856 ==
LOC: C5B 15:40 → C4C 06-27 16:35
PROVIDERS: Hospitalist; Internal Medicine Cardiovascular Disease; Internal Medicine Nephrology; Nurse Practitioner; Physician Assistant Medical; Surgery
PROC: 0W9830Z Drainage of Chest Wall with Drainage Device, Percutaneous Approach (ICD-10-PCS; 2016-06-21)
PROC: 30233N1 Transfusion of Nonautologous Red Blood Cells into Peripheral Vein, Percutaneous Approach (ICD-10-PCS; 2016-06-23)
PROC: 0HB5XZZ Excision of Chest Skin, External Approach (ICD-10-PCS; principal; 2016-06-27 14:00)
DX: T81.4XXA Infection following a procedure, initial encounter (principal); A41.01 Sepsis due to Methicillin susceptible Staphylococcus aureus; E87.2 Acidosis; L02.213 Cutaneous abscess of chest wall; E87.1 Hypo-osmolality and hyponatremia; I25.118 Atherosclerotic heart disease of native coronary artery with other forms of angina pectoris; I10 Essential (primary) hypertension; Z85.3 Personal history of malignant neoplasm of breast; Z90.12 Acquired absence of left breast and nipple; E78.5 Hyperlipidemia, unspecified; E11.649 Type 2 diabetes mellitus with hypoglycemia without coma; Z79.4 Long term (current) use of insulin; D64.9 Anemia, unspecified; R00.0 Tachycardia, unspecified; Z91.19 Patient's noncompliance with other medical treatment and regimen; Z90.49 Acquired absence of other specified parts of digestive tract; Z90.710 Acquired absence of both cervix and uterus; Z98.51 Tubal ligation status; Z82.3 Family history of stroke; Z95.5 Presence of coronary angioplasty implant and graft; E87.6 Hypokalemia
CPT/HCPCS: 36600; 71010; 74000; 76942; 80048; 80053; 80202; 81003; 82274; 82435; 82533; 82550; 82803; 82947; 83605; 83735; 83935; 84100; 84133; 84300; 84443; 85014; 85018; 85025; 85027; 85610; 86850; 86900; 86901; 86923; 87040; 87070; 87075; 87077; 87186; 87205; 93005; 93971; 94010; C1729; J0610; J0690; J1815; J2250; J2270; J2405; J3010; J3370; J3475; J3480; P9016

== ENCOUNTER → 2016-08-02 | Outpatient (CLI) | payer OTHER ==
[~2016-08-02] MED LIST changes: +INVOKANA300 MG PO; +KEFLEX PO; +LORTAB 7.5-3251 EACH PO; +MILK OF MAGNESIA PO; +TAMOXIFEN CITRA20 MG PO
--- NOTE | ~2016-08-02 | US24 ---
[facility] A Service of [facility] & [facility] RADIOLOGY TEXT RESULTS PATIENT: LILIANA KIRK LOCATION: [facility] : [birth year] UNIT #: [id number] AGE: [address]: Monico Chao MD SEX: F ORDER DR: [id number] [facility] [address] [place], [place] [address] [id number] O MR#: [id number] Acc #: [id number] NAME: LILIANA KIRK : 1960 SEX: F STUDY DATE/TIME: 08/02/2016 13:33 UNIT: [facility] ROOM: STUDY DESCRIPTION: US Breast Unilateral Attending Physician: Monico Chao M.D. Referring Physician: Silvia Green M.D. Ordering Physician: Monico Chao M.D. Primary Care Physician: Silvia Green M.D. MEDICAL IMAGING REPORT This report is preliminary unless electronic signature is present EXAM Targeted ultrasound of the upper outer right breast 08/02/2016 Please see the report from the diagnostic mammogram same date for this report. Patients over the age of 40 are entered into a reminder system with target due date for the next mammogram. A result letter will also be sent to the patient. BIRADS: 3. Probably benign finding; short interval followup suggested. Dictated by... Jacobo Pearl M.D. THIS IS AN ELECTRONICALLY VERIFIED REPORT Jacobo Pearl M.D. at 08/03/2016 5:35 PM CHELSEY/christopher TD: 08/02/2016 15:46 JOB #: [id number] MEDICAL IMAGING REPORT Page 1 of 1 COPY
--- NOTE | ~2016-08-02 | MY8 ---
[facility] A Service of [facility] & [facility] RADIOLOGY TEXT RESULTS PATIENT: LILIANA KIRK LOCATION: [facility] : 64 UNIT #: [id number] AGE: [address]: Monico Chao MD SEX: F ORDER DR: [id number] [facility] [address] [place], [place] [address] [id number] O MR#: [id number] Acc #: [id number] NAME: LILIANA KIRK : 1960 SEX: F STUDY DATE/TIME: 08/02/2016 12:52 UNIT: [facility] ROOM: STUDY DESCRIPTION: MY Mammogram Dx Dig Rt Attending Physician: Monico Chao M.D. Referring Physician: Silvia Green M.D. Ordering Physician: Monico Chao M.D. Primary Care Physician: Silvia Green M.D. MEDICAL IMAGING REPORT This report is preliminary unless electronic signature is present EXAM Unilateral right digital diagnostic mammogram with CAD 08/02/2016 INDICATIONS 56-year-old female with history of left-sided breast cancer status post mastectomy. No history of chemotherapy or radiation therapy. No family history of breast cancer. Additional history of subsequent biopsy in the upper hemisphere right breast which return results of "fatty tissue." Her mastectomy was performed in May 2016 on the left. She complains of palpable nodularity in the upper outer hemisphere right breast. CC, MLO, true lateral, exaggerated CC lateral, spot exaggerated, CC lateral views of the right breast were obtained and reviewed with an FDA approved CAD device. Following the mammographic portion of the study targeted ultrasound was thereafter performed. COMPARISON STUDIES Comparison mammograms 03/21/2016, 01/11/2016, 01/06/2016, 12/20/2015, 12/09/2014 FINDINGS MAMMOGRAPHIC FINDINGS: Breast parenchyma is composed of scattered fibroglandular densities. There is a scar marker projecting over the upper hemisphere right breast indicative of prior recent biopsy. Deep to the marker there is increased heterogeneous parenchymal density likely reflecting sequela of the recent procedure. There is no dominant nodule, mass or suspicious cluster of microcalcifications. No adenopathy in the field of view. When compared to the prior mammogram of 12/20/2015 there appear to be a few calcified oil cysts in the upper quadrant of the right breast and by report the biopsy results of this area were positive for "fatty tissue." Imaging features mammographically are suggestive of areas of fat necrosis. Targeted ultrasound was thereafter performed. [facility] A Service of [facility] RADIOLOGY TEXT RESULTS PATIENT: LILIANA KIRK LOCATION: [facility] : 64 UNIT #: [id number] AGE: [address]: Monico Chao MD SEX: F ORDER DR: ULTRASOUND FINDINGS RIGHT BREAST: The area of patient palpable concern was imaged initially by the technologist and then the patient was rescanned in my presence. The area of concern spans the 9-12 o'clock positions. Limited physical exam (with patient consent) was performed by me and demonstrates faint nodularity in this region as well on exam. Ultrasound of the area demonstrates multiple small cysts with benign or probably benign features. 1 cyst in the 12 o'clock position right breast 12 cm from the nipple measures about 4 mm. A second cyst also at 12 o'clock 12 cm from nipple measures about 3 mm. There is a third probably benign cyst or intramammary node at 11 o'clock 3 cm from the nipple measuring about 3 mm. No suspicious shadowing abnormality identified. Imaging findings between modalities are felt to be concordant and probably benign. Suggest the patient undergo 6-month followup ultrasound to document stability of the probably benign complicated cyst or intramammary node at 11 o'clock in the right breast. At that time a repeat mammogram on the right is recommended to document improvement in the presumed postoperative change in the upper hemisphere right breast. Findings and recommendations were discussed with the patient. She voiced understanding and agreement. IMPRESSION Probably benign combination of benign cysts and probably benign calcified oil cysts versus intramammary nodes in the upper hemisphere right breast. Some of the findings are best identified with ultrasound and others are best identified mammographically including probable sequela of recent biopsy in the right breast. Repeat examination with ultrasound and mammography in 6 months recommended to confirm imaging stability. See discussion above. Patients over the age of 40 are entered into a reminder system with target due date for the next mammogram. A result letter will also be sent to the patient. BIRADS: 3 - Probably benign finding - Short interval followup suggested Dictated by... Jacobo Pearl M.D. THIS IS AN ELECTRONICALLY VERIFIED REPORT Jacobo Pearl M.D. at 08/03/2016 5:38 PM Zeeshan TD: 08/02/2016 15:27 JOB #: [id number] MEDICAL IMAGING REPORT Page 1 of 1 COPY
== END | disposition home or self-care (01) ==
LOC: CMAM 12:24
DX: C50.919 Malignant neoplasm of unspecified site of unspecified female breast (principal); Z90.12 Acquired absence of left breast and nipple
CPT/HCPCS: 76641; G0206

== ENCOUNTER 2016-08-31 14:47 | Observation (INO) | payer OTHER ==
--- NOTE | ~2016-08-31 | CO ---
Unit #: [id number] #: [id number] Patient: LILIANA KIRK [id number] [address] [address] [id number] I MR#: [id number] NAME: LILIANA KIRK ROOM: 218 Age: 56 Sex: F Admission Date: 08/31/2016 : 1960 Attending Physician: Silvia Green M.D. Primary Care Physician: Silvia Green M.D. Consultation Date: 09/01/2016 CONSULTATION REPORT REASON FOR CONSULTATION Wound evaluation. HISTORY OF PRESENT ILLNESS This is a 56-year-old female with a history of breast cancer, who is known to our service. In early May of 2016 the patient had a mastectomy and then late May the patient developed fever, cellulitis and nonhealing wound. The patient at that time had an initial debridement of necrotic tissue and wound and the patient's cultures grew MSSA. The patient was treated with antibiotics and was discharged home. Since then the patient has been continuing local wound care. The patient was seen at her doctor's office and there was concern that the wound was dehiscing without any infection and the patient was admitted to the hospital. The patient denies any significant fever at home. Denies any chills or sweats, nausea, vomiting or diarrhea. She reports that she was feeling nervous and wanted the wound to be looked at. The patient has had all antibiotics stopped and surgery has evaluated the patient as well. PAST MEDICAL HISTORY 1. Left breast adenocarcinoma, status post mastectomy. 2. Diabetes type 2. 3. Coronary artery disease. 4. Hypertension. 5. Hyperlipidemia. 6. GI bleed in the past. PAST SURGICAL HISTORY 1. Cholecystectomy. 2. Hysterectomy. 3. Right shoulder surgery. 4. Appendectomy. 5. Tubal ligation. 6. Intraabdominal adhesion removal. 7. Revision of breast wound as stated in the history of present illness. SOCIAL HISTORY The patient lives with her family. She denies any alcohol, tobacco or drug use. ALLERGIES No known drug allergies. CURRENT MEDICATIONS The patient is not currently on any antibiotic therapy. For other Unit #: [id number] #: [id number] Patient: LILIANA KIRK medications please refer to the patient's MAR. REVIEW OF SYSTEMS Negative except for as previously mentioned above. PHYSICAL EXAMINATION GENERAL: This is a no apparent distress female who is currently resting in the bed comfortably. VITALS: Temperature 98.8, pulse 90, blood pressure 111/65, respiratory rate 16. HEENT: Her pupils are equal. NECK: Supple. LUNGS: Clear to auscultation bilaterally with no wheezes or rhonchi noted. HEART: S1 and S2. Regular rate and rhythm. ABDOMEN: Positive bowel sounds. Soft and nontender. EXTREMITIES: No clubbing, cyanosis or edema. SKIN: Left breast site appears with a well-healing, granulating wound with no evidence of cellulitis, purulence, drainage or odor. DIAGNOSTIC STUDIES IMAGING: There is no diagnostic imaging. LABORATORY: BUN 10, creatinine 0.4, sodium 136, potassium 3.5, chloride 104, CO2 23, bilirubin 0.7, AST 17, ALT 17, procalcitonin less than 0.05. White blood cell count 6.2, hemoglobin 10.6, hematocrit 31.6, platelets 266. 08/31/2016 blood cultures are currently negative to date. ASSESSMENT This is a 56-year-old female with a history of diabetes and breast cancer, status post mastectomy with slowly healing wound. The patient's wound appears to be well healing with granulating tissue and no evidence of purulence or cellulitis. PLAN At this time will recommend to hold antibiotic therapy. Will recommend to continue local wound care and follow up with her surgeon's office as needed. All questions were answered for the patient. No objections to discharge. Thank you for allowing us to participate in the care of this patient. Further recommendations to follow pending the patient's clinical course. Dictated by... Rebecca AlanPElijahRElijahNElijah for David David/diogo TD: 09/01/2016 10:02 JOB #: [id number] Unit #: [id number] #: [id number] Patient: LILIANA KIRK CONSULTATION REPORT Page 1 of 1 X X CONSULTATION REPORT
--- NOTE | ~2016-08-31 | CO ---
Unit #: [id number] #: [id number] Patient: LILIANA KIRK [id number] [address] [address] [id number] I MR#: [id number] NAME: LILIANA KIRK ROOM: 218 Age: 56 Sex: F Admission Date: 08/31/2016 : 1960 Attending Physician: Silvia Green M.D. Primary Care Physician: Silvia Green M.D. Consultation Date: 08/31/2016 CONSULTATION REPORT HISTORY OF PRESENT ILLNESS Ms. Kirk is a 56-year-old female who underwent left mastectomy on June 08, 2016, by Dr. Hernandez. Postoperatively, she developed some skin flap necrosis and underwent debridement on June 27, 2016. At that time, the wound was left open, and she was started on dressing changes, and the wound has been healing by secondary intention. She was sent to the hospital by the home nursing service for wound dehiscence and possible infection. On examination, the wound has granulation tissue, and it is healing by secondary intention as expected. It has not completely epithelized, but it certainly is not dehisced. She also has the normal appearance to her wound drainage that you would expect from any open wound. There is no cellulitis, purulent drainage, or evidence of invasive infection. At this time, I am going to resume her Dakin's wet-to-dry dressings and discontinue her vancomycin. PAST MEDICAL/SURGICAL HISTORY 1. Atherosclerotic coronary artery disease, status post cardiac catheterization with angioplasty and drug-eluting stent placement. 2. Hypertension. 3. Hyperlipidemia. 4. Diabetes. 5. Previous bleeding from hemorrhoids and underwent banding. 6. Mastectomy for breast cancer. 7. Cholecystectomy. 8. Hysterectomy. 9. Right shoulder surgery. 10. Appendectomy. 11. section. 12. Tubal ligation. FAMILY HISTORY Peripheral vascular disease. ALLERGIES No allergies to medications. HOME MEDICATIONS 1. Januvia. 2. Lantus. 3. Carvedilol. 4. Crestor. 5. Imdur. Unit #: [id number] #: [id number] Patient: LILIANA KIRK 6. Acetaminophen. 7. Hydrocodone. SOCIAL HISTORY . Nonsmoker and nondrinker. REVIEW OF SYSTEMS No fever, chills, or night sweats. PHYSICAL EXAMINATION VITAL SIGNS: Temperature is 97.8. Vital signs are within normal limits. GENERAL: Awake, alert, and oriented. HEENT: Unremarkable. CARDIAC: Regular rhythm. LUNGS: Clear. ABDOMEN: Soft. EXTREMITIES: No edema. NEUROLOGIC: Grossly intact. CHEST WALL: The left chest wall is open with granulation tissue in the base of the wound. The wound skin flaps are adhered to the chest wall. There is no purulent drainage or cellulitis. I cannot express any purulent drainage. DIAGNOSTIC STUDIES LABORATORY: Admission labs are pending at this time. Admission chemistry: CBC shows a white count of 4.8 with normal differential, hemoglobin 12, and platelets 304,000. ASSESSMENT AND PLAN Patient with a left mastectomy wound that has been debrided for skin flap necrosis that is healing by secondary intention. The patient is to continue her local wound care and from the surgical standpoint can be followed in the office. Once the wound is completely epithelized and contracted, if the scar is unacceptable, scar revision can be undertaken. Dictated by... David Friend/nick TD: 08/31/2016 17:28 JOB #: [id number] CONSULTATION REPORT Page 1 of 1 X Chino Peralta MD CONSULTATION REPORT
--- NOTE | ~2016-08-31 | DS ---
Unit #: [id number] #: [id number] Patient: LILIANA FRIED [id number] [address] [address] [id number] I MR#: [id number] NAME: LILIANA FRIED ROOM: 218 Age: 56 Sex: F Admission Date: 08/31/2016 : 1960 Discharge Date: 09/01/2016 Attending Physician: Silvia Green M.D. Primary Care Physician: Silvia Green M.D. DISCHARGE SUMMARY CONSULTATION DURING HOSPITALIZATION 1. Dr. Peralta - [facility] services. 2. Infectious Disease which is still pending. DISCHARGE DIAGNOSES 1. Wound dehiscence. 2. Left mastectomy wound which has been debrided for skin flap necrosis. 3. History of breast cancer. 4. History of coronary artery disease. 5. History of diabetes mellitus, uncontrolled. 6. History of hyperlipidemia. DISCHARGE MEDICATIONS 1. Tylenol 650 q.4 p.r.n. 2. Zoloft 100 mg daily. 3. Glucophage 1000 mg b.i.d. 4. Januvia 100 mg daily. 5. Lopid 600 mg daily. 6. Coreg 3.125 mg b.i.d. 7. Crestor 20 mg q. h.s. 8. Insulin 15 units b.i.d. (Please note - dose of insulin has been increased at this time. 9. Humalog 5 units t.i.d. 10. Imdur 60 mg daily. 11. Nitrostat on a p.r.n. basis. LAB WORKUP ON DISCHARGE WBC 6.2, hemoglobin 10.6, hematocrit 31.6, and platelet count of 266. BMP shows sodium 136, potassium 3.5, chloride 104, BUN 10, creatinine 0.4, calcium 8.2, procalcitonin level less than 0.05. HOSPITAL COURSE Ms. Liliana Fried is a 56-year-old female who is very well known to me, was admitted from office for possible wound dehiscence and infection. Patient also had a temp of 101 at home. Patient was last admitted recently in hospital for severe infection and sepsis. Patient was admitted to rule out any infected wound. Blood culture was done, preliminary. It is negative. Dr. Peralta from [facility] has evaluated the patient. As per their recommendations, patient needs to continue wound care at home and follow up with them in one week or so. Patient's dressing will be 1/8 strength Dakin's wet to dry dressing on the left chest wall three times a day. The patient did receive a dose of vancomycin during hospitalization. Patient has been afebrile during Unit #: [id number] #: [id number] Patient: LILIANA FRIED hospitalization. Patient's blood sugar was high so insulin is being increased. EXAMINATION ON DISCHARGE Blood pressure is 102/49, respiratory rate 14, pulse is 90, temperature is 98.6. Oxygen saturation is 97%. CHEST: Fair air entry. No additional sounds. Left chest wall has open wound with granulation tissue in the base. CVS: S1, S2 positive. Regular rhythm. ABDOMEN: Soft. EXTREMITIES: Negative edema. DISCHARGE INSTRUCTIONS The patient is being discharged home in stable condition. Follow up with primary care provider in one to two weeks. Follow up with [facility] in one week. Check blood sugars at home and bring the log to primary care provider's office. She does verbalize understanding. Dictated by... Silvia Green M.D. LYDIA/uriah TD: 09/04/2016 07:48 JOB #: [id number] DISCHARGE SUMMARY Page 1 of 1 X Silvia Green MD X DISCHARGE SUMMARY
--- NOTE | ~2016-08-31 | HP ---
Unit #: [id number] #: [id number] Patient: LILIANA KIRK [id number] [address] [address] [id number] I MR#: [id number] NAME: LILIANA KIRK ROOM: 218 Age: 56 Sex: F Admission Date: 08/31/2016 : 1960 Attending Physician: Silvia Green M.D. Primary Care Physician: Silvia Green M.D. HISTORY AND PHYSICAL ADMISSION DIAGNOSES 1. Questionable wound dehiscence of the left mastectomy wound. 2. History of breast cancer, status post mastectomy on chemo. 3. History of coronary artery disease. 4. Uncontrolled diabetes. 5. Dyslipidemia. HISTORY OF PRESENT ILLNESS Ms. Kirk is a 56-year-old female, patient of Dr. Silvia Green, who was seen at Dr. Green's office today secondary to some low grade fevers. The exam was concerning for questionable wound dehiscence on her mastectomy wound and patient was directly admitted. She otherwise denies any chest pain, shortness of air, dyspnea, headache, dizziness, nausea, vomiting, diarrhea or abdominal pain. REVIEW OF SYSTEMS Twelve point review of systems on this patient is basically negative, except as above. She is complaining of some subjective fevers and chills at home. PAST MEDICAL HISTORY Again significant for history of coronary artery disease, history of hypertension, dyslipidemia, diabetes, breast cancer. History of recent wound infection with sepsis. PAST SURGICAL HISTORY Significant for PCI with stent, cholecystectomy, hysterectomy right shoulder surgery, appendectomy, , tubal ligation, left mastectomy. ALLERGIES No known drug allergies. CURRENT MEDICATIONS She is on Lipitor, Coreg, Levemir 10 units subcu b.i.d., Tylenol, Nitrostat, low Accu-Cheks, Lovenox 40 mg subcu daily, Zoloft, Lopid, Imdur, Januvia. SOCIAL HISTORY No current history of tobacco, alcohol, illicit drugs. FAMILY HISTORY Unremarkable. PHYSICAL EXAMINATION Unit #: [id number] #: [id number] Patient: LILIANA KIRK GENERAL APPEARANCE: Patient is a 56-year-old, female in no acute distress. VITAL SIGNS: BP 138/62, heart rate 112, respirations 18, temperature 98.8. HEENT: Head is atraumatic. Pupils equal, round, and reactive to light and accommodation. Extraocular muscles intact. Oropharynx clear. NECK: Supple. No mass. No JVD. No bruits. CHEST: Diminished bilaterally. CARDIOVASCULAR: S1 and S2. No murmurs. ABDOMEN: Soft, nontender, and nondistended. LOWER EXTREMITIES: Without any cyanosis, clubbing, or edema. NEUROLOGIC: Patient is grossly intact. No focal deficits. MUSCULOSKELETAL: Significant for well healing wound, mastectomy wound with some granulation tissue. There is some necrotic wound edges as well. DIAGNOSTIC STUDIES LABORATORY STUDIES: Chemistry significant with blood glucose of 461, bicarb 28, sodium 133. White count 4.8, H and H 12 and 35.8. ASSESSMENT 1. Questionable dehiscence, status post (1) , continue local wound care. Stable from [facility] standpoint, to be discharged outpatient followup. 2. History of breast cancer, status post mastectomy on chemo. 3. History of coronary disease, status post PCI with stent. 4. Uncontrolled diabetes, will increase Levemir, increase sliding scale. Consider endocrinology evaluation. 5. Significant (2) . 6. GI and DVT prophylaxis. Continue Lovenox and start on Protonix. Dictated by David Alfaro/davy TD: 09/01/2016 05:51 JOB #: [id number] HISTORY AND PHYSICAL Page 1 of 1 X Duncan Elmore MD X HISTORY AND PHYSICAL
[~2016-08-31 14:47] MED LIST changes: -INVOKANA300 MG PO; -LORTAB 7.5-3251 EACH PO; -TAMOXIFEN CITRA20 MG PO
[2016-08-31 16:10] LABS: HEMATOCRIT 35.8 % (35.0-45.0); MEAN CELL VOLUME 84.6 FL (83-96); MEAN CORPUSCULAR HEMOGLOBIN 28.4 PG (28-34); MEAN CORPUSCULAR HGB CONC 33.6 g/dL (30-36); MEAN PLATELET VOLUME 7.3 FL (6.5-11.5); RED BLOOD COUNT 4.22 X10e (3.90-5.30); RED CELL DISTRIBUTION WIDTH 14.5 % (11.0-15.5); WHITE BLOOD COUNT 4.8 X10e3 (4.0-10.5)
[2016-08-31 17:03] LABS: ALBUMIN SERUM 3.8 g/dL (3.5-5.0); BILIRUBIN,TOTAL 0.7 mg/dL (0.2-2.0); CALCIUM SERUM 9.3 mg/dL (8.4-10.2); CREATININE SERUM 0.5 mg/dL (0.6-1.4); GLOM FILT RATE Estimated 109.7 mL/min (>60); POTASSIUM 3.7 mmol/L (3.5-5.1); PROTEIN TOTAL SERUM 7.4 g/dL (6.0-8.3)
[2016-09-01 06:12] LABS: BASOPHIL% 0.8 % (0-2.5); EOSINOPHIL# 0.1 X10e3 (0-0.7); HEMATOCRIT 31.6 % (35.0-45.0); HEMOGLOBIN 10.6 gm/dL (12.0-16.0); LYMPHOCYTE# 2.3 X10e3 (1.0-3.5); LYMPHOCYTE% 36.9 % (17.0-45.0); MEAN CELL VOLUME 84.8 FL (83-96); MEAN CORPUSCULAR HEMOGLOBIN 28.4 PG (28-34); MEAN CORPUSCULAR HGB CONC 33.5 g/dL (30-36); MEAN PLATELET VOLUME 7.3 FL (6.5-11.5); MONOCYTE# 1.1 X10e3 (0-1.0); MONOCYTE% 17.7 % (3.0-12.0); NEUTROPHIL# 2.7 X10e3 (1.5-7.1); NEUTROPHIL% 43.6 % (40-75); PLATELET COUNT 266 X10e3 (140-420); RED BLOOD COUNT 3.73 X10e (3.90-5.30); RED CELL DISTRIBUTION WIDTH 14.5 % (11.0-15.5); WHITE BLOOD COUNT 6.2 X10e3 (4.0-10.5)
[2016-09-01 06:13] LABS: DIFF IND YES
[2016-09-01 06:38] LABS: ANISOCYTOSIS SL; PLATELET ESTIMATE NORMAL (NORMAL)
[2016-09-01 07:12] LABS: BLOOD UREA NITROGEN 10 mg/dL (9-23); CALCIUM SERUM 8.2 mg/dL (8.4-10.2); CARBON DIOXIDE 23 mmol/L (22-31); CHLORIDE 104 mmol/L (100-111); CREATININE SERUM 0.4 mg/dL (0.6-1.4); GLOM FILT RATE Estimated 118.1 mL/min (>60); GLUCOSE FASTING 279 mg/dL (70-110); POTASSIUM 3.5 mmol/L (3.5-5.1); SODIUM 136 mmol/L (135-145)
[2016-09-01 07:29] LABS: PROCALCITONIN <0.05 NG/ML
[2016-10-10] MEDS ORDERED: LORTAB 7.5-3251 EACH PO (08:22)
[2016-12-26] MEDS ORDERED: TAMOXIFEN CITRA20 MG PO (11:39)
[2016-12-26] MEDS ORDERED: INVOKANA300 MG PO (11:39)
[2016-12-26] MEDS ORDERED: PANTOPRAZOLE SO40 MG PO (11:39)
[2016-12-26] MEDS ORDERED: LIPITOR40 MG PO (11:39)
== END 2016-09-01 11:11 | disposition home or self-care (01) ==
LOC: C2A 15:08 → UNDOADMOB 15:08 → C2A 15:08
PROVIDERS: Physician Assistant Medical
DX: T81.31XA Disruption of external operation (surgical) wound, not elsewhere classified, initial encounter (principal); T81.4XXA Infection following a procedure, initial encounter; Y83.8 Other surgical procedures as the cause of abnormal reaction of the patient, or of later complication, without mention of misadventure at the time of the procedure; Z90.12 Acquired absence of left breast and nipple; Z85.3 Personal history of malignant neoplasm of breast; I25.10 Atherosclerotic heart disease of native coronary artery without angina pectoris; E11.65 Type 2 diabetes mellitus with hyperglycemia; Z79.4 Long term (current) use of insulin; E78.5 Hyperlipidemia, unspecified; Z95.5 Presence of coronary angioplasty implant and graft; Z90.49 Acquired absence of other specified parts of digestive tract; Z90.710 Acquired absence of both cervix and uterus; Z82.49 Family history of ischemic heart disease and other diseases of the circulatory system
CPT/HCPCS: 80048; 80053; 82308; 82947; 85025; 85027; 87040; 96372; 96374; G0378; J1650; J1815; J3370

== ENCOUNTER → 2016-10-10 | Day surgery (SDC) | payer OTHER ==
[~2016-10-10] MED LIST changes: +INVOKANA300 MG PO; +LORTAB 7.5-3251 EACH PO; +TAMOXIFEN CITRA20 MG PO
--- NOTE | ~2016-10-10 | OR ---
Unit #: [id number] #: [id number] Patient: LILIANA KIKR [id number] [address] [place], [place] [address] [id number] O MR#: [id number] NAME: LILIANA KIRK ROOM: Date of Procedure: 10/10/2016 Admission Date: 10/10/2016 Surgeon: Igor Hernandez Jr., M.D. : 1960 Attending Physician: Igor Hernandez Jr., M.D. Primary Care Physician: Silvia Green M.D. OPERATIVE REPORT INDICATIONS FOR PROCEDURE The patient is a 56-year-old white female, who has had a past history of breast cancer, who is on chemotherapy. She developed 4 abscesses of her scalp. She is brought in this time for incision, drainage and sharp excisional debridement of these. The patient understands the procedure including the risks, including that of bleeding, infection, and poor healing and consents. PREOPERATIVE DIAGNOSIS Multiple abscess of the scalp (4). POSTOPERATIVE DIAGNOSIS Multiple abscess of the scalp (4), noting the largest abscess approximately 4 cm in diameter and the smaller one approximately 2 cm in diameter. ANESTHESIA General with LMA. PROCEDURE PERFORMED Incision, drainage, and sharp excisional debridement using a #10 blade scalpel of 4 abscesses of the scalp. DESCRIPTION OF PROCEDURE The patient was positioned in supine position with the head turned to the right, prepped and draped in routine fashion. After being anesthetized with LMA for incision and drainage of the 2 abscesses of the left side of scalp. Incisions were made in both abscesses with a small portion of skin being removed from each side of the incision and the necrotic tissue beneath it being debrided with a #10 blade scalpel. This was carried down to the periosteum. Hemostasis was attempted with the Bovie cautery, but the area continued to ooze and therefore, the larger wound after being cultured was irrigated and then packed with Betadine-soaked sponge and several sutures of 2-0 nylon were used for compression over the sponge itself to tack it in place. The second incision was merely packed without sutures and the same procedure was performed on 2 abscesses on the other side of the scalp with the head turned to the left. Sterile dressings were applied externally. Estimated blood loss was less than 100 mL. The patient received less than 1000 mL of crystalloid solution during the procedure. Sponges and instruments counts were correct x3. No drains were used. No complications. The patient was taken to the recovery room with stable vital signs in satisfactory condition. Unit #: [id number] #: [id number] Patient: LILIANA KIRK Dictated by... Igor Hernandez Jr., M.D. JMB/albina TD: 10/11/2016 06:01 JOB #: [id number] CC: Monico Chao M.D. OPERATIVE REPORT Page 1 of 1 X Igor Hernandez MD X PROCEDURE OPERATIVE NOTE
[2016-10-10 08:49] LABS: HEMATOCRIT 37.3 % (35.0-45.0); HEMOGLOBIN 11.9 gm/dL (12.0-16.0); MEAN CELL VOLUME 87.4 FL (83-96); MEAN CORPUSCULAR HEMOGLOBIN 27.9 PG (28-34); MEAN PLATELET VOLUME 7.7 FL (6.5-11.5); RED BLOOD COUNT 4.27 X10e (3.90-5.30); RED CELL DISTRIBUTION WIDTH 16.8 % (11.0-15.5); WHITE BLOOD COUNT 11.4 X10e3 (4.0-10.5)
[2016-10-10 09:48] LABS: BUN/CREATININE RATIO 56.66; CALCIUM SERUM 8.8 mg/dL (8.4-10.2); CREATININE SERUM 0.3 mg/dL (0.6-1.4); GLOM FILT RATE Estimated 129.9 mL/min (>60); POTASSIUM 3.2 mmol/L (3.5-5.1)
== END | disposition home or self-care (01) ==
LOC: CSUR 07:39
PROVIDERS: Surgery
DX: L02.811 Cutaneous abscess of head [any part, except face] (principal); I25.10 Atherosclerotic heart disease of native coronary artery without angina pectoris; K21.9 Gastro-esophageal reflux disease without esophagitis; E11.9 Type 2 diabetes mellitus without complications; E78.5 Hyperlipidemia, unspecified; C50.919 Malignant neoplasm of unspecified site of unspecified female breast; Z90.12 Acquired absence of left breast and nipple; Z86.73 Personal history of transient ischemic attack (TIA), and cerebral infarction without residual deficits; Z87.442 Personal history of urinary calculi; Z79.4 Long term (current) use of insulin; Z79.891 Long term (current) use of opiate analgesic; Z79.899 Other long term (current) drug therapy; Z90.49 Acquired absence of other specified parts of digestive tract; Z90.721 Acquired absence of ovaries, unilateral; Z95.5 Presence of coronary angioplasty implant and graft; Z98.890 Other specified postprocedural states
CPT/HCPCS: 80048; 82947; 85027; 87070; 87075; 87077; 87186; 87205; J1815; J2250; J2405; J3010; J3370

== ENCOUNTER → 2016-10-25 | Outpatient (CLI) | payer OTHER ==
--- NOTE | ~2016-10-25 | US84 ---
[id number] [facility] [address] [place], [place] [address] [id number] O MR#: [id number] Acc #: [id number] NAME: LILIANA KIRK : 1960 SEX: F STUDY DATE/TIME: 10/25/2016 10:32 UNIT: [facility] ROOM: STUDY DESCRIPTION: US LE Veins Complete Magdi Stdy Attending Physician: Durga Jordan M.D. Referring Physician: Durga Jordan M.D. Ordering Physician: Durga Jordan M.D. Primary Care Physician: Silvia Green M.D. MEDICAL IMAGING REPORT This report is preliminary unless electronic signature is present EXAM Bilateral lower extremity venous duplex scan, 10/25/2016 HISTORY Leg pain. Breast cancer. FINDINGS High-resolution B-mode imaging and color flow Doppler analysis was performed of the deep and superficial veins of the lower extremities bilaterally. All veins are fully compressible with no intraluminal thrombus. Spontaneous and phasic flow is noted in the common femoral, deep femoral, femoral, and popliteal veins bilaterally. Flow is demonstrated in the anterior tibial, posterior tibial and peroneal veins on both sides. Flow is also present in the great saphenous veins bilaterally. IMPRESSION Normal venous examination of the lower extremities bilaterally. No deep or superficial vein thrombosis in either leg. Dictated by... Oscar Heath M.D. THIS IS AN ELECTRONICALLY VERIFIED REPORT Oscar Heath M.D. at 10/26/2016 7:42 AM BELLA/ralph TD: 10/25/2016 21:43 JOB #: [id number] MEDICAL IMAGING REPORT Page 1 of 1 COPY
== END | disposition home or self-care (01) ==
LOC: CNIV 10:11
DX: M79.604 Pain in right leg (principal); M79.605 Pain in left leg; I73.9 Peripheral vascular disease, unspecified
CPT/HCPCS: 93970

== ENCOUNTER → 2016-11-13 | Outpatient (CLI) | payer OTHER ==
[2016-11-13 12:11] LABS: HEMATOCRIT 41.3 % (35.0-45.0); HEMOGLOBIN 13.7 gm/dL (12.0-16.0); MEAN CORPUSCULAR HEMOGLOBIN 29.8 PG (28-34); MEAN CORPUSCULAR HGB CONC 33.1 g/dL (30-36); MEAN PLATELET VOLUME 7.6 FL (6.5-11.5); RED BLOOD COUNT 4.59 X10e (3.90-5.30); RED CELL DISTRIBUTION WIDTH 14.9 % (11.0-15.5); WHITE BLOOD COUNT 8.6 X10e3 (4.0-10.5)
== END | disposition home or self-care (01) ==
LOC: CSSDAY 11:33
PROVIDERS: Internal Medicine Medical Oncology
DX: Z51.11 Encounter for antineoplastic chemotherapy (principal); C50.919 Malignant neoplasm of unspecified site of unspecified female breast
CPT/HCPCS: 85027; 96374; 96375; 96377; 96413; 96417; J1100; J1200; J2469; J2505; J9070; J9171

== ENCOUNTER → 2016-12-06 | Outpatient (CLI) | payer OTHER ==
--- NOTE | ~2016-12-06 | US77 ---
[facility] A Service of [facility] RADIOLOGY TEXT RESULTS PATIENT: LILIANA KIRK LOCATION: CNIV : 64 UNIT #: [id number] AGE: [address]: Durga Jordan MD SEX: F ORDER DR: [id number] [facility] [address] [place], [place] [address] [id number] O MR#: [id number] Acc #: [id number] NAME: LILIANA KIRK : 1960 SEX: F STUDY DATE/TIME: 12/06/2016 11:16 UNIT: CNIV ROOM: STUDY DESCRIPTION: US Kidney Bilateral Complete Attending Physician: Durga Jordan M.D. Referring Physician: Durga Jordan M.D. Ordering Physician: Silvia Green M.D. Primary Care Physician: Silvia Green M.D. MEDICAL IMAGING REPORT This report is preliminary unless electronic signature is present EXAM Renal ultrasound INDICATION Difficulty urinating for 1 week. Patient does have a history of kidney stones. TECHNIQUE Melara-scale and color Doppler sonographic images were obtained through the kidneys and bladder. FINDINGS Both kidneys are normal in appearance. No solid or cystic renal masses are seen. There is no hydronephrosis. Urinary bladder appears unremarkable, pre voiding volume is 250 mL. Post void residual is 12 mL. IMPRESSION 1. Normal appearance to the patient's kidneys. 2. Small post void residual. Dictated by... Haley Mo M.D. THIS IS AN ELECTRONICALLY VERIFIED REPORT Haley Mo M.D. at 12/07/2016 2:45 PM LETICIA/audrey TD: 12/07/2016 08:37 JOB #: [id number] MEDICAL IMAGING REPORT Page 1 of 1 COPY
--- NOTE | ~2016-12-06 | US84 ---
[id number] [facility]. [facility] [address] [place], [place] [address] [id number] O MR#: [id number] Acc #: [id number] NAME: LILIANA KIRK : 1960 SEX: F STUDY DATE/TIME: 12/06/2016 11:33 UNIT: CNIV ROOM: STUDY DESCRIPTION: US LE Veins Complete Magdi Stdy Attending Physician: Durga Jordan M.D. Referring Physician: Durga Jordan M.D. Ordering Physician: Durga Jordan M.D. Primary Care Physician: Silvia Green M.D. MEDICAL IMAGING REPORT This report is preliminary unless electronic signature is present EXAM Bilateral lower extremity venous duplex, 12/06/2016 HISTORY Bilateral lower extremity swelling and pain x1 week. History of breast cancer. FINDINGS There is phasic spontaneous flow of the right common femoral, deep femoral, femoral, popliteal, anterior and posterior tibial, peroneal, saphenous veins. There is compressibility of the vein lumen of all the aforementioned vessels. There is phasic spontaneous flow with respiration of the left common femoral, femoral, deep femoral, popliteal, anterior and posterior tibial, peroneal, and saphenous veins. There is compressibility of the vein lumen of all the aforementioned vessels. IMPRESSION 1. There is no evidence of a DVT of the right lower extremity on today's exam. 2. There is no evidence of a DVT of the left lower extremity on today's exam. Dictated by... Dariusz Martinez M.D. THIS IS AN ELECTRONICALLY VERIFIED REPORT Dariusz Martinez M.D. at 12/18/2016 9:31 AM Nyla TD: 12/07/2016 11:56 JOB #: [id number] MEDICAL IMAGING REPORT Page 1 of 1 COPY
== END | disposition home or self-care (01) ==
LOC: CNIV 10:43
DX: I73.9 Peripheral vascular disease, unspecified (principal); M79.604 Pain in right leg; M79.605 Pain in left leg
CPT/HCPCS: 76770; 93970